=== PATIENT | female | born 1950 | race African-American/Black ===

== ENCOUNTER → 2017-05-13 | Outpatient (CLI) | payer MEDICARE ==
--- NOTE | 2017-05-13 10:31 | WOMENS IMAGING REPORT ---
EXAM DESCRIPTION: BILAT DIAGNOSTIC MAMMO W/CAD; U/S BREAST UNILAT LIMITED COMPLETED DATE/TIME: 05/13/2017 9:12 am; 05/13/2017 10:00 am REASON FOR STUDY: RIGHT BREAST MASS; RT BREAST MASS N63.0 UNSPECIFIED LUMP IN UNSPECIFIED BREAST COMPARISON: None. TECHNIQUE: Standard craniocaudal and mediolateral oblique views of each breast recorded using digita l acquisition. Additional right breast 90 mediolateral view and right breast ultrasound was performed. LIMITATIONS: None. FINDINGS: RIGHT BREAST MASSES: In the deep central right breast 12 o'clock position, a mammographic mass is present measurin g about 4 x 3 cm in size. This has lobular irregular borders and is mammographically suspicious for malignancy. CALCIFICATIONS: No new or suspicious calcifications. ARCHITECTURAL DISTORTION: None. DEVELOPING DENSITY: None. ASYMMETRY: None noted. OTHER: No other significant findings. LEFT BREAST MASSES: No suspicious masses. CALCIFICATIONS: No new or suspicious calcifications. ARCHITECTURAL DISTORTION: None. DEVELOPING DENSITY: None. ASYMMETRY: None noted. OTHER: No other significant finding. Read with the assistance of CAD: .[facility] - R2 Cenova Version 1.3 .[facility] - R2 Cenova Version 1.3 .[facility] - R2 Cenova Version 2.4 .[facility] [place] - R2 Cenova Version 2.4 .[facility] - R2 Flare Breaker Version 9.2 Right breast ultrasound: Ultrasound of the right breast 12 o'clock position demonstrates a 4.4 x 3.4 cm solid mass with acoust ic absorption and internal color flow, worrisome for malignancy. This would be amenable to ultrasoun d-guided core biopsy. IMPRESSION: No mammographic evidence for malignancy left breast. Right breast 4.4 x 3.4 cm mass, worrisome for malignancy. BI-RADS 4 Suspicious. Biopsy should be per formed in the absence of clinical contra-indication. BREAST DENSITY: b. There are scattered areas of fibroglandular density. BIRAD: 4 Suspicious. Biopsy should be considered. RECOMMENDATION: RECOMMENDED FOLLOW UP: Right breast ultrasound-guided core biopsy and post biopsy cl ip placement with two-view mammogram. These findings and recommendations were discussed with the pat ladarius, and she agrees to ultrasound-guided core biopsy. This can be performed at [facility]. SPECIFIC INTERVENTION/IMAGING/CONSULTATION RECOMMENDED:Right breast ultrasound-guided biopsy, post bi opsy clip placement and follow-up two-view mammogram COMMUNICATION:These findings were discussed with the patient. She is amenable to ultrasound-guided c ore biopsy performed here at [facility]. COMMENT: The patient has been notified of the results by letter per SA requirements. Additional no tification policies are in place for contacting patient with suspicious or incomplete findings. Quality ID #[id number]: The [employer] recommends an annual screening mammogram for women aged 40 years or over. This facility utilizes a reminder system to ensure that all patients receive reminder letters, and/or direct phone calls for appointments. This includes reminders for routine scr eening mammograms, diagnostic mammograms, or other Breast Imaging Interventions when appropriate. Th is patient will be placed in the appropriate reminder system. The [employer] (ACR) has developed recommendations for screening MRI of the breast s in certain patient populations, to be used in conjunction with mammography. Breast MRI surveillanc e may be appropriate for women with more than 20% lifetime risk of developing breast cancer as deter mined by genetic testing, significant family history of the disease, or history of mantle radiation f or Hodgkins Disease. ACR Practice Guidelines 2008. TECHNICAL DOCUMENTATION: FINDING NUMBER: (1) ASSESSMENT: (1) JOB ID: [id number] [employer]- All Rights Reserved
--- NOTE | 2017-05-13 10:31 | WOMENS IMAGING REPORT ---
EXAM DESCRIPTION: BILAT DIAGNOSTIC MAMMO W/CAD; U/S BREAST UNILAT LIMITED COMPLETED DATE/TIME: 05/13/2017 9:12 am; 05/13/2017 10:00 am REASON FOR STUDY: RIGHT BREAST MASS; RT BREAST MASS N63.0 UNSPECIFIED LUMP IN UNSPECIFIED BREAST COMPARISON: None. TECHNIQUE: Standard craniocaudal and mediolateral oblique views of each breast recorded using digita l acquisition. Additional right breast 90 mediolateral view and right breast ultrasound was performed. LIMITATIONS: None. FINDINGS: RIGHT BREAST MASSES: In the deep central right breast 12 o'clock position, a mammographic mass is present measurin g about 4 x 3 cm in size. This has lobular irregular borders and is mammographically suspicious for malignancy. CALCIFICATIONS: No new or suspicious calcifications. ARCHITECTURAL DISTORTION: None. DEVELOPING DENSITY: None. ASYMMETRY: None noted. OTHER: No other significant findings. LEFT BREAST MASSES: No suspicious masses. CALCIFICATIONS: No new or suspicious calcifications. ARCHITECTURAL DISTORTION: None. DEVELOPING DENSITY: None. ASYMMETRY: None noted. OTHER: No other significant finding. Read with the assistance of CAD: .[facility] - R2 Cenova Version 1.3 .[facility] - R2 Cenova Version 1.3 .[facility] - R2 Cenova Version 2.4 .[facility] - R2 Cenova Version 2.4 .[facility] - R2 Plant Protection Superintendent Version 9.2 Right breast ultrasound: Ultrasound of the right breast 12 o'clock position demonstrates a 4.4 x 3.4 cm solid mass with acoust ic absorption and internal color flow, worrisome for malignancy. This would be amenable to ultrasoun d-guided core biopsy. IMPRESSION: No mammographic evidence for malignancy left breast. Right breast 4.4 x 3.4 cm mass, worrisome for malignancy. BI-RADS 4 Suspicious. Biopsy should be per formed in the absence of clinical contra-indication. BREAST DENSITY: b. There are scattered areas of fibroglandular density. BIRAD: 4 Suspicious. Biopsy should be considered. RECOMMENDATION: RECOMMENDED FOLLOW UP: Right breast ultrasound-guided core biopsy and post biopsy cl ip placement with two-view mammogram. These findings and recommendations were discussed with the pat ladarius, and she agrees to ultrasound-guided core biopsy. This can be performed at [facility]. SPECIFIC INTERVENTION/IMAGING/CONSULTATION RECOMMENDED:Right breast ultrasound-guided biopsy, post bi opsy clip placement and follow-up two-view mammogram COMMUNICATION:These findings were discussed with the patient. She is amenable to ultrasound-guided c ore biopsy performed here at [facility]. COMMENT: The patient has been notified of the results by letter per SA requirements. Additional no tification policies are in place for contacting patient with suspicious or incomplete findings. Quality ID #[id number]: The [employer] recommends an annual screening mammogram for women aged 40 years or over. This facility utilizes a reminder system to ensure that all patients receive reminder letters, and/or direct phone calls for appointments. This includes reminders for routine scr eening mammograms, diagnostic mammograms, or other Breast Imaging Interventions when appropriate. Th is patient will be placed in the appropriate reminder system. The [employer] (ACR) has developed recommendations for screening MRI of the breast s in certain patient populations, to be used in conjunction with mammography. Breast MRI surveillanc e may be appropriate for women with more than 20% lifetime risk of developing breast cancer as deter mined by genetic testing, significant family history of the disease, or history of mantle radiation f or Hodgkins Disease. ACR Practice Guidelines 2008. TECHNICAL DOCUMENTATION: FINDING NUMBER: (1) ASSESSMENT: (1) JOB ID: [id number] [employer]- All Rights Reserved
== END ==
LOC: WI 08:46
PROVIDERS: ATTEND Internal Medicine
DX: N63.10 Unspecified lump in the right breast, unspecified quadrant (principal)
CPT/HCPCS: 76642; G0204; 77066

== ENCOUNTER → 2017-06-14 | Day surgery (SDC) | payer MEDICARE ==
[~2017-06-14] MED LIST: LIDOCAINE 2% INJ (20 MG/ML) 20 ML MDV ONE
--- NOTE | 2017-06-16 17:22 | WOMENS IMAGING REPORT ---
EXAM DESCRIPTION: U/S BREAST BX COMPLETED DATE/TIME: 06/14/2017 2:11 pm REASON FOR STUDY: RIGHT BREAST MASS AT 1200 N63.12 UNSPECIFIED LUMP IN THE RIGHT BREAST, UPPER INNE R VENKATA COMPARISON: Diagnostic mammograms and ultrasound 05/13/2017 TECHNIQUE: The procedure was discussed with the patient and the patient agreed to proceed. The patient was scanned and the area of interest in the 12 o'clock position 7 cm from the nipple of t he right breast was localized. This correlates with the area of concern on prior imaging studies. Th is area was targeted for ultrasound-guided core biopsy. After sterile skin prep and 3.5 mL local lidocaine 1% for skin and deep tissue anesthesia, a 14 gauge coaxial core biopsy needle was used to obtain several cores of tissue from the lesion. Under ultras ound guidance, a ribbon clip was placed in the areas sampled. There were no immediate post-procedure complications. MAMMOGRAM: Postprocedure two-view mammogram was not acquired after clip placement. Pathology yields a diagnosis of intraductal papilloma, fibrocystic changes, negative for malignancy. Pathology is concordant. LIMITATIONS: None. FINDINGS: Ultrasound guided breast biopsy as described above. POST PROCEDURE MAMMOGRAMS FOR MARKER PLACEMENT: No IMPRESSION: ULTRASOUND-GUIDED CORE BIOPSY OF THE RIGHT BREAST YIELDS A DIAGNOSIS OF intraductal jd lloma, fibrocystic changes. Because this is a papillary lesion, excision should be considered. COMMENT: COMMUNICATION: This report was discussed with the patient, 06/16/2017, 1655 hours. She und erstands that although this is a benign pathologic diagnosis of papillary lesion, excision of this ma ss should still be considered. Patient medication list reviewed: Yes- Quality ID# [id number]:Eligible professional attests to documenting i n the medical record they obtained, updated, or reviewed the patient's current medications. TECHNICAL DOCUMENTATION: JOB ID: [id number] [email or web address]- All Rights Reserved
== END ==
LOC: WI 12:43
PROVIDERS: ATTEND Surgery
PROC: 0HBT3ZX Excision of Right Breast, Percutaneous Approach, Diagnostic (ICD-10-PCS; principal; 2017-06-14)
DX: D24.1 Benign neoplasm of right breast (principal); N60.11 Diffuse cystic mastopathy of right breast
CPT/HCPCS: 88342 ×2; 88341 ×2; 88305 ×2; 19083; J3490

== ENCOUNTER 2017-08-03 09:06 | Day surgery (SDC) | payer MEDICARE ==
[2017-07-28 09:25] LABS: HEMATOCRIT 35.9 % (36.0-47.0); HEMOGLOBIN 11.1 g/dL (12.0-15.5); MEAN CORPUSCULAR HEMOGLOBIN 24.1 pg (27.0-33.4); MEAN CORPUSCULAR VOLUME 78 fl (80-97); PLATELET COUNT 353 10^3/uL (150-450); RED BLOOD COUNT 4.61 10^6/uL (3.72-5.28); RED CELL DISTRIBUTION WIDTH 16.7 % (11.5-14.0); WHITE BLOOD COUNT 6.1 10^3/uL (4.0-10.5)
[2017-07-28 10:05] LABS: ANION GAP 11 (5-19); BLOOD UREA NITROGEN 13 mg/dL (7-20); CALCIUM 10.6 mg/dL (8.4-10.2); CARBON DIOXIDE 25 mmol/L (22-30); CHLORIDE 102 mmol/L (98-107); GLUCOSE 268 mg/dL (75-110); POTASSIUM 4.6 mmol/L (3.6-5.0); SODIUM 137.6 mmol/L (137-145)
--- NOTE | 2017-07-28 12:27 | RADIOLOGY REPORT (SQ) ---
EXAM DESCRIPTION: CHEST PA/LATERAL COMPLETED DATE/TIME: 07/28/2017 10:18 am REASON FOR STUDY: PRE OP N63.10 UNSPECIFIED LUMP IN THE RIGHT BREAST, UNSPECIFIED VENKATA Z01.818 ENCO UNTER FOR OTHER PREPROCEDURAL EXAMINATION COMPARISON: 09/03/2009. NUMBER OF VIEWS: Two view. TECHNIQUE: Frontal and lateral radiographic views of the chest acquired. LIMITATIONS: None. FINDINGS: LUNGS AND PLEURA: No opacities, masses or pneumothorax. No pleural effusion. MEDIASTINUM AND HILAR STRUCTURES: No masses. No contour abnormalities. HEART AND VASCULAR STRUCTURES: Heart enlarged without failure. Aorta normal for age. BONES: No acute findings. Degenerative changes in the spine and shoulders. HARDWARE: None in the chest. OTHER: No other significant finding. IMPRESSION: CARDIAC ENLARGEMENT WITHOUT FAILURE. TECHNICAL DOCUMENTATION: JOB ID: [id number] [employer]- All Rights Reserved
--- NOTE | 2017-07-29 11:58 | EKG REPORT ---
SEVERITY:- ABNORMAL ECG - SINUS RHYTHM PROBABLE INFERIOR INFARCT, OLD : Confirmed by: Cinthia Aguero 29-Jul-2017 11:58:20
[~2017-08-03 09:06] MED LIST changes: +CEFAZOLIN 2 GM/D5W RTU 2 GM/50 ML RTUPB IV PRN; +LACTATED RINGERS 1000 ML IV PRN; +LIDOCAINE 0.5% INJ-PF (5 MG/ML) 50 ML SDV SUBCUT PRN; -LIDOCAINE 2% INJ (20 MG/ML) 20 ML MDV ONE
[2017-08-03] MEDS ORDERED: BUPIVACAINE HCL 0.25 % INJ/PF (2.5 MG/1 ML) 30 ML VIAL ONE (09:39)
[2017-08-03] MEDS ORDERED: FENTANYL CITRATE INJ/PF 100 MCG/2 ML AMPUL ONE ×2 (10:22→10:23)
[2017-08-03] MEDS ORDERED: PROPOFOL INJ 200 MG/20 ML VIAL IV ONE (10:23)
[2017-08-03] MEDS ORDERED: ACETAMINOPHEN 0 ML IV ONE (10:23)
[2017-08-03] MEDS ORDERED: ONDANSETRON HCL INJ/PF 4 MG/2 ML SDV ONE (10:23)
[2017-08-03] MEDS ORDERED: DEXAMETHASONE SOD PHOSPHATE INJ 4 MG/1 ML VIAL ONE (10:23)
[2017-08-03] MEDS ORDERED: MIDAZOLAM 2 MG/2 ML INJ ONE (10:23)
[2017-08-03] MEDS ORDERED: MORPHINE SULFATE 10 MG/ML INJ ONE (10:24)
[2017-08-03] MEDS ORDERED: SUCCINYLCHOLINE CHLORIDE INJ 200 MG/10 ML VIAL ONE (10:38)
[2017-08-03 10:46] LABS: POTASSIUM 4.4 mmol/L (3.6-5.0)
[2017-08-03] MEDS ORDERED: MEPERIDINE HCL/PF INJ 25 MG/1 ML DISP.SYRIN IV PRN (13:44)
[2017-08-03] MEDS ORDERED: PROMETHAZINE HCL INJ 25 MG/1 ML VIAL IV PRN ×2 (13:44)
[2017-08-03] MEDS ORDERED: DIPHENHYDRAMINE HCL 50 MG/ML VIAL IV PRN (13:44)
[2017-08-03] MEDS ORDERED: FENTANYL CITRATE INJ/PF 100 MCG/2 ML AMPUL IV PRN ×3 (13:44)
[2017-08-03] MEDS ORDERED: ONDANSETRON HCL INJ/PF 4 MG/2 ML SDV IV PRN (14:29)
[2017-08-03] MEDS ORDERED: RINGERS SOLUTION,LACTATED 1,000 ML IV PRN (14:29)
[2017-08-03] MEDS ORDERED: MORPHINE SULFATE 10 MG/ML INJ IV PRN (14:29)
--- NOTE | 2017-08-03 14:29 | PDOC DISCHARGE SUMMARY ---
Discharge Summary (SDC) - Discharge Final Diagnosis: Right breast mass Date of Surgery: 08/03/17 Discharge Date: 08/03/17 Condition: Good Treatment or Instructions: Right breast mass excision. May discharge patient home when met discharge criteria. Follow-up with me next week. Stay active but avoid strenuous activity. May shower in 2 days. Keep Steri-Strips on. Referrals: ALYSON OTT MD [Primary Care Provider] - Discharge Diet: As Tolerated Discharge Activity: Activity As Tolerated - Stay active but avoid strenuous activity. Wear firm fitting bra. Report the Following to Your Physician Immediately: Fever over 101 Degrees, Unusual Bleeding, Redness, Drainage-Foul Smelling
--- NOTE | 2017-08-03 15:38 | Operative Report ---
Operative Report DATE OF SURGERY: 08/03/17 PREOPERATIVE DIAGNOSIS: Right breast mass. POSTOPERATIVE DIAGNOSIS: Right breast mass. OPERATION: Right breast mass wide local excision. SURGEON: ZEN HOANG ANESTHESIA: GA TISSUE REMOVED OR ALTERED: Right breast mass. Right subareolar tissue. Right subareolar cyst. COMPLICATIONS: None ESTIMATED BLOOD LOSS: Minimal INTRAOPERATIVE FINDINGS: Firm oval approximately 4-5 cm mass located at the 12 o 'clock position of the right breast just above the areolar region. Subareolar very dense fibrotic tissue. With subareolar 2 cm cyst. PROCEDURE: Informed consent was obtained. Patient was brought to the operating room and placed on the operating room table in the supine position. After satisfactory induction of general anesthesia, patient's right breast was prepped and draped in the usual sterile fashion. The mass laid at the 12 o'clock position of the patient's right breast just above the areolar region. A transverse incision was made overlying the mass and the mass was excised with the about a centimeter to 2 cm margin circumferentially. And no point did I cut into the mass. The wide local excision specimen was oriented with a short stitch marking superior border and long stitch marking lateral border. At the subareolar region there was very dense fibrotic tissue at the superior area, that is the inferior edge of the resection. This superior subareolar tissue was excised and submitted to pathology. At the immediate subareolar region there was an apparent cyst that was excised in its wall was submitted to pathology. No other abnormalities were noted. Hemostasis appeared excellent. Operative field was irrigated and irrigant aspirated out. The wound was closed with deep dermal interrupted Vicryl sutures followed by running subcuticular Prolene pullout suture. Patient tolerated procedure well with no apparent complications and was taken to the recovery area in stable condition.
[2017-08-03 16:55] VITALS: BP 150/80
== END 2017-08-03 16:50 | disposition home or self-care (01) ==
LOC: OROUT 09:06
PROVIDERS: ATTEND Surgery
PROC: 0HBT0ZZ Excision of Right Breast, Open Approach (ICD-10-PCS; principal; 2017-08-03 11:30)
DX: N63.10 Unspecified lump in the right breast, unspecified quadrant (principal); N60.41 Mammary duct ectasia of right breast; D24.1 Benign neoplasm of right breast; E11.9 Type 2 diabetes mellitus without complications; Z79.899 Other long term (current) drug therapy; Z79.84 Long term (current) use of oral hypoglycemic drugs; Z88.5 Allergy status to narcotic agent; I10 Essential (primary) hypertension
CPT/HCPCS: 93005; 36415 ×2; 82962; 82947; 84132; 85027; 80048; 88304 ×2; 88305 ×2; 88307 ×2; 71046; 93010; 19301; J2250; J1100; J3010; J0330; J2405; J2704; J0690; 400; J0131; J2270

== ENCOUNTER → 2017-11-17 | Outpatient (CLI) | payer MEDICARE ==
[~2017-11-17] MED LIST changes: +CEFAZOLIN 1 GM/D5W RTU 1 GM/50 ML RTUPB IV PRN; -CEFAZOLIN 2 GM/D5W RTU 2 GM/50 ML RTUPB IV PRN; +LIDOCAINE 1%/EPINEPHRINE INJ 20 ML VIAL ONE; +LIDOCAINE 4% TRANSPARENT DRESSING 5 GM KIT TP PRN; +METHYLENE BLUE 50 MG/10 ML AMPULE ONE; +MICROFIBRILLAR COLLAGEN 1 GM PACK ONE
[2017-11-17 10:15] LABS: HEMATOCRIT 38.4 % (36.0-47.0); HEMOGLOBIN 11.9 g/dL (12.0-15.5); MEAN CORPUSCULAR HEMOGLOBIN 24.1 pg (27.0-33.4); MEAN CORPUSCULAR HGB CONC 30.9 g/dL (32.0-36.0); MEAN CORPUSCULAR VOLUME 78 fl (80-97); PLATELET COUNT 356 10^3/uL (150-450); RED BLOOD COUNT 4.93 10^6/uL (3.72-5.28); WHITE BLOOD COUNT 6.2 10^3/uL (4.0-10.5)
[2017-11-17 10:53] LABS: ANION GAP 17 (5-19); BLOOD UREA NITROGEN 8 mg/dL (7-20); CALCIUM 9.9 mg/dL (8.4-10.2); CARBON DIOXIDE 27 mmol/L (22-30); CHLORIDE 100 mmol/L (98-107); GLUCOSE 291 mg/dL (75-110); POTASSIUM 4.2 mmol/L (3.6-5.0); SODIUM 144.1 mmol/L (137-145)
--- NOTE | 2017-11-17 22:49 | EKG REPORT ---
SEVERITY:- BORDERLINE ECG - SINUS RHYTHM CONSIDER ANTERIOR INFARCT : Confirmed by: Cinthia Aguero 17-Nov-2017 19:48:27
[2017-11-24 08:03] VITALS: BP 172/84
--- NOTE | 2017-11-24 13:14 | EKG REPORT ---
SEVERITY:- ABNORMAL ECG - SINUS RHYTHM ABNRM R PROG, CONSIDER ASMI OR LEAD PLACEMENT CONSIDER OLD INFERIOR NH : Confirmed by: Gerardo Newman MD 24-Nov-2017 13:14:09
== END ==
LOC: OD 09:25 → UNDOADMIN 11-24 07:18 → INOR 11-24 07:18 → EDSTATUS 11-24 11:00
PROVIDERS: ATTEND Surgery
DX: Z01.810 Encounter for preprocedural cardiovascular examination (principal); Z01.812 Encounter for preprocedural laboratory examination; Z01.818 Encounter for other preprocedural examination; C50.919 Malignant neoplasm of unspecified site of unspecified female breast; D64.9 Anemia, unspecified; I10 Essential (primary) hypertension; E11.9 Type 2 diabetes mellitus without complications; E66.9 Obesity, unspecified
CPT/HCPCS: 36415; 80048; 82947; 84132; 85027; 93005; 93010; J0690; J3490; Q9968

== ENCOUNTER → 2017-11-25 | Outpatient (CLI) | payer MEDICARE ==
[~2017-11-25] MED LIST changes: +AMLODIPINE BESYLATE 5 MG TABLET PO ONE; -CEFAZOLIN 1 GM/D5W RTU 1 GM/50 ML RTUPB IV PRN; -LACTATED RINGERS 1000 ML IV PRN; -LIDOCAINE 0.5% INJ-PF (5 MG/ML) 50 ML SDV SUBCUT PRN; -LIDOCAINE 1%/EPINEPHRINE INJ 20 ML VIAL ONE; -LIDOCAINE 4% TRANSPARENT DRESSING 5 GM KIT TP PRN; +LISINOPRIL 10 MG TABLET PO ONE; -METHYLENE BLUE 50 MG/10 ML AMPULE ONE; +METOPROLOL TARTRATE 100 MG TABLET PO ONE; +METOPROLOL TARTRATE PF/INJ 5 MG/5 ML SDV IV ONE; -MICROFIBRILLAR COLLAGEN 1 GM PACK ONE; +REGADENOSON INJ 0.4 MG/5 ML DISP.SYRIN IV ONE
--- NOTE | 2017-11-25 18:14 | DRAGON STRESS TEST REPORT ---
INTRAVENOUS LEXISCAN CARDIOLITE STRESS TEST USING SINGLE PHOTON EMMISION COMPUTERIZED TOMOGRAPHIC. DATE OF PROCEDURE: November 25, 2017, INDICATION : Chest pain CARDIAC RISK FACTORS: Diabetes, hypertension RESTING EKG: Sinus rhythm with heart rate of [address]-T wave changes noted. STRESS EKG: No significant ST segment changes noted with LexiScan bolus REASON FOR TERMINATION: Protocol. PROCEDURE REPORT: Baseline heart rate 121 beats per minute with blood pressure of 178/86. Patient had no significant complaints. Patient was bolused with Lexiscan 0.4 mg intravenously followed by saline bolus. Heart rate at 2 minutes post bolus 144 with a blood pressure of 201/96. 3 minutes post bolus heart rate 144 with blood pressure of 197/87. Prior to stopping monitoring, at 6 minutes patient heart rate was 117 with blood pressure of 162/85. No significant EKG changes were noted. Patient had no significant complaints during the procedure or postprocedure. Patient injected with Aminophyllin 75 mg at 3 minutes or later after Lexiscan bolus. CONCLUSIONS: Normal EKG and hemodynamic response to IV LexiScan. NUCLEAR DATA: At rest the patient was given 14.91 millicuries of technetium 99 sestamibi injected intravenously. As per protocol rest gated SPECT images were obtained. On day of stress test, the patient was given intravenous LexiScan at a dose of 0.4 mg in 5 mL intravenously, followed by flush with normal saline. Subsequently the stress dose of 46.6 millicuries of technetium 99 sestamibi was injected intravenously. As per protocol stress gated images were obtained. NUCLEAR INTERPRETATION: Both raw and processed data were used for interpretation. Visual, qualitative, computer-generated quantitative data was used. There was good myocardial uptake of technetium compound. Significant motion artifact and soft tissue attenuations were noted. Marked increased visceral uptake was also noted. Overall image quality was suboptimal. Mild decreased uptake noted in the inferolateral wall of the left ventricle in the stress images which is smaller area of fixed defect being noted indicative of inferolateral ischemia with underlying fixed defect. EKG gated imaging showed LV EF at 52 %, rest and stress gated EF similar visually. T. I D. ratio was 1.43 lung heart ratio noted to be within normal limits 0.43. No significant extracardiac and abnormal radiotracer activities were noted. RV free wall uptake was noted to be WNL. IMPRESSION: Also refer to comments under nuclear interpretation. Also test results needs to be interpreted in the context of pretest probability. Image quality was significantly suboptimal therefore clinical correlation is requested. 1. Mild decreased uptake noted in the inferolateral wall of the left ventricle in the stress images and a smaller area of fixed defect being noted indicative of inferolateral ischemia with underlying fixed defect.. 2. Mild transient ischemic dilatation noted. Could be related to LVH, severe hypertension response. 3. EKG gated imaging shows left ventricular ejection fraction of approx. 52 %. 4. Clinical correlation requested as occasionally worse disease or balanced ischemia could be missed. In approximately 10% of the cases Lexiscan may not cause adequate vasodilatory stress. 5. Please note that patient had significantly increased heart rate and also blood pressure during the stress imaging with marked increase in double product but there were no significant EKG changes or chest pain. Patient remained symptoms were just shortness of breath. Therefore EKG part was at least negative. RECOMMENDATIONS: Aggressive risk factor modification and medical management. Further evaluation may be needed if continued symptoms or other high risk indicators are noted on clinical evaluation. Close cardiology follow-up is also recommended. Clinical correlation with echocardiogram derived ejection fraction. Inability to exercise by itself can lead to increased cardiovascular event risks. Consider cardiology consultation and or follow-up if clinically indicated. I am available for cardiology evaluation and consultation if requested by the historian dramatic arts, unless patient already has a samples and repairs preparer. JEANETH
== END ==
LOC: RAD 06:50
PROVIDERS: ATTEND Internal Medicine Cardiovascular Disease
DX: Z01.818 Encounter for other preprocedural examination (principal); R07.9 Chest pain, unspecified; C50.919 Malignant neoplasm of unspecified site of unspecified female breast; E66.9 Obesity, unspecified; I10 Essential (primary) hypertension; E11.9 Type 2 diabetes mellitus without complications
CPT/HCPCS: 93017; 78452; A9500; J2785; J3490; A9270 ×3; Q9969

== ENCOUNTER 2017-12-29 07:19 | Observation (INO) | payer MEDICARE ==
[2017-12-22 11:08] LABS: ANION GAP 15 (5-19); BLOOD UREA NITROGEN 14 mg/dL (7-20); CALCIUM 10.1 mg/dL (8.4-10.2); CARBON DIOXIDE 28 mmol/L (22-30); CHLORIDE 99 mmol/L (98-107); GLUCOSE 291 mg/dL (75-110); POTASSIUM 4.1 mmol/L (3.6-5.0); SODIUM 142.2 mmol/L (137-145)
[2017-12-22 12:04] LABS: HEMATOCRIT 37.8 % (36.0-47.0); HEMOGLOBIN 12.2 g/dL (12.0-15.5); MEAN CORPUSCULAR HEMOGLOBIN 24.6 pg (27.0-33.4); MEAN CORPUSCULAR HGB CONC 32.2 g/dL (32.0-36.0); MEAN CORPUSCULAR VOLUME 76 fl (80-97); PLATELET COUNT 315 10^3/uL (150-450); RED BLOOD COUNT 4.95 10^6/uL (3.72-5.28); RED CELL DISTRIBUTION WIDTH 16.3 % (11.5-14.0); WHITE BLOOD COUNT 6.5 10^3/uL (4.0-10.5)
[~2017-12-29 07:19] MED LIST changes: -AMLODIPINE BESYLATE 5 MG TABLET PO ONE; +CEFAZOLIN 1 GM/D5W RTU 1 GM/50 ML RTUPB IV PRN; +LACTATED RINGERS 1000 ML IV PRN; +LIDOCAINE 0.5% INJ-PF (5 MG/ML) 50 ML SDV SUBCUT PRN; +LIDOCAINE 2% INJ-PF (20 MG/ML) 10 ML AMPUL ONE; +LIDOCAINE 4% TRANSPARENT DRESSING 5 GM KIT TP PRN; -LISINOPRIL 10 MG TABLET PO ONE; -METOPROLOL TARTRATE 100 MG TABLET PO ONE; -METOPROLOL TARTRATE PF/INJ 5 MG/5 ML SDV IV ONE; -REGADENOSON INJ 0.4 MG/5 ML DISP.SYRIN IV ONE
[2017-12-29] MEDS ORDERED: METHYLENE BLUE 50 MG/10 ML AMPULE ONE (07:40)
[2017-12-29] MEDS ORDERED: LIDOCAINE 1%/EPINEPHRINE INJ 20 ML VIAL ONE (07:40)
[2017-12-29] MEDS ORDERED: MICROFIBRILLAR COLLAGEN 1 GM PACK ONE (07:40)
[2017-12-29] MEDS ORDERED: INSULIN REG, HUMAN 100 UNIT/ML 3 ML VIAL (PYX) ONE (10:20)
[2017-12-29] MEDS ORDERED: ALBUTEROL SULFATE 0.083% NEB 2.5 MG/3 ML AMPUL NEB ONE (11:20)
[2017-12-29] MEDS ORDERED: FAMOTIDINE INJ/PF 20 MG/2 ML SDV IV ONE (11:21)
[2017-12-29] MEDS ORDERED: METOCLOPRAMIDE HCL INJ/PF 10 MG/2 ML SDV IV ONE (11:45)
--- NOTE | 2017-12-29 11:55 | RADIOLOGY REPORT (SQ) ---
EXAM DESCRIPTION: NM LYMPHATICS/LYMPH GLANDS COMPLETED DATE/TIME: 12/29/2017 10:46 am REASON FOR STUDY: BREAST CANCER C50.919 MALIGNANT NEOPLASM OF UNSP SITE OF UNSPECIFIED FEMAL COMPARISON: Ultrasound breast biopsy 06/14/2017 RADIONUCLIDE AND DOSE: 571 microcuries TC-99m tilmanocept - Lymphoseek. The route of agent administration: Subcutaneous in the skin. TECHNIQUE: The skin of the right breast was prepped in sterile fashion. The radiopharmaceutical was administered in equally divided doses in the periareolar breast, intradermally from a benign o'clock to the 3 o'clock position. LIMITATIONS: None. FINDINGS: Images demonstrate activity at the injection site. Migration of activity towards the righ t axilla IMPRESSION: ADMINISTRATION OF RADIOPHARMACEUTICAL FOR SENTINEL LYMPH NODE EVALUATION. TECHNICAL DOCUMENTATION: JOB ID: [id number] [employer]- All Rights Reserved Reading location - IP/workstation name: [email or web address]
[2017-12-29] MEDS ORDERED: MIDAZOLAM 2 MG/2 ML INJ ONE (12:04)
[2017-12-29] MEDS ORDERED: FENTANYL CITRATE INJ/PF 250 MCG/5 ML AMPULE ONE (12:04)
[2017-12-29] MEDS ORDERED: EPHEDRINE SULFATE INJ 50 MG/1 ML AMPULE ONE (12:04)
[2017-12-29] MEDS ORDERED: PROPOFOL INJ 200 MG/20 ML VIAL IV ONE (12:05)
[2017-12-29] MEDS ORDERED: ACETAMINOPHEN 1,000 MG/100 ML RTUPB IV ONE (12:05)
[2017-12-29] MEDS ORDERED: DEXMEDETOMIDINE INJ 80 MCG/20 ML VIAL IV ONE (12:05)
[2017-12-29] MEDS ORDERED: MORPHINE SULFATE 10 MG/ML INJ ONE (12:06)
[2017-12-29] MEDS ORDERED: FENTANYL CITRATE INJ/PF 100 MCG/2 ML AMPUL IV PRN ×3 (13:04)
[2017-12-29] MEDS ORDERED: DIPHENHYDRAMINE HCL 50 MG/ML VIAL IV PRN (13:04)
[2017-12-29] MEDS ORDERED: PROMETHAZINE HCL INJ 25 MG/1 ML VIAL IV PRN ×2 (13:04)
[2017-12-29] MEDS ORDERED: ONDANSETRON HCL INJ/PF 4 MG/2 ML SDV IV PRN ×2 (13:04→13:22)
[2017-12-29] MEDS ORDERED: MEPERIDINE HCL/PF INJ 25 MG/1 ML DISP.SYRIN IV PRN (13:04)
[2017-12-29] MEDS ORDERED: KETOROLAC TROMETHAMINE 10 MG TABLET PO PRN ×2 (13:22→13:23)
[2017-12-29] MEDS ORDERED: KETOROLAC TROMETHAMINE INJ/PF 30 MG/1 ML SDV IV PRN (13:22)
--- NOTE | 2017-12-29 13:22 | Operative Report ---
Operative Report DATE OF SURGERY: 12/29/17 PREOPERATIVE DIAGNOSIS: 1. Status post right breast lumpectomy for DCIS; Positive resection margin. 2. Incidental papillary carcinoma, right breast POSTOPERATIVE DIAGNOSIS: Same OPERATION: 1. Right mastectomy with sentinel lymph node biopsy 3. 2. Drainage of right chest wall SURGEON: KIMANI IRVING 1ST OCEAN IMPORT REPRESENTATIVE: HIRAM REICH ANESTHESIA: GA TISSUE REMOVED OR ALTERED: Right breast; 3 sentinel lymph COMPLICATIONS: None ESTIMATED BLOOD LOSS: Minimal INTRAOPERATIVE FINDINGS: See below PROCEDURE: Patient was in the preop holding area the right breast was marked. Bedside neoprobe showed increased activity in the right axilla consistent with sentinel mapping to the right axilla. The patient was taken to the operating room where general anesthesia was induced. Right arm abducted, right breast injected intradermally with 3 cc of full- strength methylene blue in the right breast massaged. The right breast and axilla were prepped and draped in sterile fashion. Surgical plan surgical timeout were conducted. Markings were made on the right breast for a classic mastectomy. Skin was incised with a #10 blade. Superior and inferior skin flaps were raised from the point of elliptical transection, to the sub-clavicular area, the parasternal tissue and the serratus muscle laterally and inferiorly. The breast was taken off of the chest wall and event only, the tail of Ferguson mobilized with the breast. [place] node biopsy was undertaken. Dual mapping technique utilized. 3 sentinel lymph nodes were harvested from the low axilla level 1. First node blue and hot in vivo count 10,052 ex vivo count 7970. [place] lymph node to 5881 in vivo count ex vivo count 9948. Third node hot and blue in vivo count 21 ,000 958 ex vivo count 23 395. Background counts were negligible. [place] node biopsy portion of the operation was felt to be complete. A large Justin drain was placed in the inferior skin flap and hooked to bulb suction and secured to skin with 2-0 Prolene suture. Hemostasis was achieved. Wound closed with a 2-0 Vicryl, Dermabond glue. Patient tolerated procedure well, extubated and taken recovery room in stable condition. The physician cement tester assistant, Ms. Torrez, provided assistance during this case by: Assisting insertion, retracting tissue, instillation of local anesthesia and closure of skin incisions.
[2017-12-29] MEDS ORDERED: DEXTROSE 5%-LACTATED RINGERS 1,000 ML IV PRN (13:43)
[2017-12-29] MEDS ORDERED: KETOROLAC TROMETHAMINE INJ/PF 30 MG/1 ML SDV ONE (13:59)
[2017-12-29] MEDS ORDERED: ONDANSETRON HCL INJ/PF 4 MG/2 ML SDV ONE (14:36)
[2017-12-29] MEDS ORDERED: SUCCINYLCHOLINE CHLORIDE INJ 200 MG/10 ML VIAL ONE (14:36)
[2017-12-29] MEDS ORDERED: PHENYLEPHRINE HCL INJ/PF 10 MG/1 ML SDV ONE (14:36)
[2017-12-29] MEDS ORDERED: TRIAMCINOLONE ACETONIDE 0.1% CREAM 15 GM TOP PRN (15:56)
[2017-12-29] MEDS ORDERED: ACETAMINOPHEN 1000 MG PO PRN (15:56)
[2017-12-29] MEDS ORDERED: ACETAMINOPHEN 325 MG TABLET PO PRN (16:35)
[2017-12-29] MEDS: DOCUSATE SODIUM 100 MG CAPSULE PO SCH (17:53)
[2017-12-29] MEDS: KETOROLAC TROMETHAMINE INJ/PF 30 MG/1 ML SDV IV SCH ×2 (17:54→23:46)
[2017-12-29] MEDS: ACETAMINOPHEN 1,000 MG/100 ML RTUPB IV SCH (17:58)
[2017-12-29] MEDS ORDERED: FUROSEMIDE 20 MG TABLET PO SCH (18:00)
[2017-12-29] MEDS ORDERED: ACETAMINOPHEN INJ/PF 1000 MG/100 ML SDV IV SCH (18:00)
[2017-12-29] MEDS: METFORMIN HCL 500 MG TABLET PO SCH (19:42)
[2017-12-29] MEDS: GLIPIZIDE XL 5 MG TAB.ER.24 PO SCH (19:42)
[2017-12-29] MEDS: INSULIN GLARGINE,HUM.REC.ANLOG 300 UNIT/3 ML INSULN.PEN SUBCUT SCH (19:43)
[2017-12-29] MEDS: FUROSEMIDE 40 MG TABLET PO SCH (19:48)
[2017-12-29] MEDS ORDERED: ATORVASTATIN CALCIUM 20 MG TABLET PO SCH (22:00)
[2017-12-30] MEDS ORDERED: DEXTROSE 50%-WATER SYRINGE 12.5 GM/25 ML DOSE IV PRN (00:25)
[2017-12-30] MEDS ORDERED: DEXTROSE 50%-WATER SYRINGE 25 GM/50 ML DOSE IV PRN (00:25)
[2017-12-30] MEDS ORDERED: DEXTROSE 40% GEL 15 GM TUBE PO PRN (00:25)
[2017-12-30] MEDS ORDERED: DEXTROSE 40% GEL 15 GM TUBE X 2 PO PRN (00:25)
[2017-12-30] MEDS ORDERED: GLUCAGON,HUMAN RECOMB 1 MG INJ IM PRN (00:25)
[2017-12-30] MEDS: INSULIN LISPRO 100 UNIT/ML 3 ML VIAL SUBCUT PRN ×2 (00:44→09:58)
[2017-12-30] MEDS: ACETAMINOPHEN 1,000 MG/100 ML RTUPB IV SCH ×2 (00:44→06:36)
[2017-12-30] MEDS ORDERED: INSULIN LISPRO 100 UNIT/ML 3 ML VIAL SUBCUT ONE (03:15)
[2017-12-30] MEDS ORDERED: ACETAMINOPHEN 1,000 MG/100 ML RTUPB IV ONE (05:56)
[2017-12-30] MEDS: KETOROLAC TROMETHAMINE INJ/PF 30 MG/1 ML SDV IV SCH (05:57)
[2017-12-30] MEDS ORDERED: SITAGLIPTIN PHOSPHATE 50 MG TABLET PO SCH (08:00)
[2017-12-30] MEDS: METFORMIN HCL 500 MG TABLET PO SCH (08:20)
[2017-12-30 08:39] VITALS: BP 133/65
--- NOTE | 2017-12-30 09:08 | PDOC DISCHARGE SUMMARY ---
General - Admit/Disc Date/PCP Admission Date/Primary Care Provider: 12/29/17 07:19 ALYSON OTT MD Discharge Date: 12/30/17 - Discharge Diagnosis (1) Breast cancer Is this a current diagnosis for this admission?: Yes - Additional Information Home Medications: Amlodipine Besylate/Benazepril [Amlodipine-Benazepril 5-20 mg] 1 cap PO DAILY Furosemide [Lasix 40 mg Tablet] 40 mg PO BID 12/29/17 Glipizide [Glucotrol 10 mg Tablet] 10 mg PO DAILY 12/29/17 Insulin Detemir [Levemir Flextouch] 26 units SQ BID 12/29/17 Metformin HCl [Glucophage] 1,000 mg PO BID 12/29/17 Metoprolol Succinate [Toprol XL 100 mg Tablet] 100 mg PO Q12 12/29/17 Rosuvastatin Calcium [Crestor 10 mg Tablet] 10 mg PO QHS 12/29/17 Sitagliptin Phosphate [Januvia] 100 mg PO QAM 12/29/17 Spironolactone [Aldactone 25 mg Tablet] 25 mg PO DAILY 12/29/17 History of Present Illness History of Present Illness: ASHISH MENESES is a 67 year old female admitted for surgical intervention for her breast cancer. She was taken to the OR for right mastectomy. The pt tolerated the procedure well and was taken to the floor in stable condition. Hospital Course Hospital Course: The pt was transferred to the floor in stable condition. She did well overnight. Her incision was clean, dry, and intact. By POD #1, she was ambulating, tolerating a diet, her pain was controlled, and it was felt the she had reached maximal hospital benefit. The pt at this time was fit for discharge. Physical Exam Vital Signs: Temp Pulse Resp BP Pulse Ox 98.2 F 85 18 133/65 H 100 12/30/17 07:51 12/30/17 07:51 12/30/17 07:51 12/30/17 07:51 12/30/17 08:16 Pulse Oximeter Continuous Start: 12/29/17 16: 55 Freq: RTQ4 Status: Complete Document 12/30/17 08:16 TPO (Rec: 12/30/17 08:46 TPO [email or web address]) Pulse Oximetry Assessment Oxygen Saturation (92-100) 100 Oxygen Delivery Method Room Air Fraction of Inspired Oxygen (FIO2) 21 Equipment Usage Equipment Discontinued Continuous SpO2 Machine # 6 Intake & Output 12/29/17 12/30/17 12/31/17 06:59 06:59 06:59 Intake Total 2220 Output Total 245 335 Balance 1974 - Weight 117.9 kg Results Laboratory Results: 12/22/17 10:31 12/29/17 08:15 12/29/17 08:15 Potassium 4.0 Impressions: Lymph Scan Nuclear Medicine 12/29/17 08:30 IMPRESSION: ADMINISTRATION OF RADIOPHARMACEUTICAL FOR SENTINEL LYMPH NODE EVALUATION. Qualifiers - * PATIENT BEING DISCHARGED WITH ANY OF THE FOLLOWING DIAGNOSIS: No Plan Time Spent: Less than 30 Minutes
[2017-12-30] MEDS: DOCUSATE SODIUM 100 MG CAPSULE PO SCH (09:56)
[2017-12-30] MEDS: INSULIN GLARGINE,HUM.REC.ANLOG 300 UNIT/3 ML INSULN.PEN SUBCUT SCH (09:57)
[2017-12-30] MEDS ORDERED: BENAZEPRIL HCL 20 MG TABLET PO SCH (10:00)
[2017-12-30] MEDS ORDERED: METOPROLOL TARTRATE 100 MG TABLET PO SCH (10:00)
[2017-12-30] MEDS ORDERED: SPIRONOLACTONE 25 MG TABLET PO SCH (10:00)
[2017-12-30] MEDS ORDERED: AMLODIPINE BESYLATE PO SCH (10:00)
[2017-12-30] MEDS ORDERED: BENAZEPRIL PO SCH (10:00)
[2017-12-30] MEDS ORDERED: AMLODIPINE BESYLATE 5 MG TABLET PO SCH (10:00)
[2017-12-30] MEDS: FUROSEMIDE 40 MG TABLET PO SCH (10:47)
[2017-12-30] MEDS: GLIPIZIDE XL 5 MG TAB.ER.24 PO SCH (10:50)
== END 2017-12-30 11:12 | disposition home health service (06) ==
LOC: INTOOBSV 07:19 → INOR 07:19 → 2S 15:34
PROVIDERS: ADMIT Surgery; ATTEND Surgery
PROC: 0HTT0ZZ Resection of Right Breast, Open Approach (ICD-10-PCS; principal; 2017-12-29 11:00)
DX: D05.11 Intraductal carcinoma in situ of right breast (principal); Z17.0 Estrogen receptor positive status [ER+]; E11.9 Type 2 diabetes mellitus without complications; I10 Essential (primary) hypertension; R06.02 Shortness of breath; Z79.899 Other long term (current) drug therapy; Z79.4 Long term (current) use of insulin; Z87.891 Personal history of nicotine dependence; Z98.890 Other specified postprocedural states
CPT/HCPCS: 36415 ×2; 82962 ×2; 84132; 85027; 80048; 88342 ×2; 88307 ×2; 78195; 94799; 94762 ×2; 94640; 19307; G0378 ×2; G0379; A9520; J2250; J0690; A9270 ×15; J3010; J1885 ×2; J2370; J3490 ×3; J0330; J2405; J2704; S0028; J0131 ×2; Q9968; 1610; J1815; J2270; J2765

== ENCOUNTER 2018-01-21 10:43 | Inpatient (IN) | payer MEDICARE ==
[~2018-01-21 10:43] MED LIST changes: -CEFAZOLIN 1 GM/D5W RTU 1 GM/50 ML RTUPB IV PRN; -LACTATED RINGERS 1000 ML IV PRN; -LIDOCAINE 0.5% INJ-PF (5 MG/ML) 50 ML SDV SUBCUT PRN; -LIDOCAINE 2% INJ-PF (20 MG/ML) 10 ML AMPUL ONE; -LIDOCAINE 4% TRANSPARENT DRESSING 5 GM KIT TP PRN; +PIPERACILLIN SODIUM/TAZOBACTAM 3.375 GM in NORMAL SALINE 100 ML IV ONE
[2018-01-21] MEDS ORDERED: ACETAMINOPHEN 325 MG TABLET PO ONE ×2 (11:02→21:15)
[2018-01-21] MEDS ORDERED: NORMAL SALINE 1000 ML 1,000 ML IV ONE (11:02)
--- NOTE | 2018-01-21 11:04 | ER Document Report ---
ED Medical Screen (RME) - General Chief Complaint: Low Blood Sugar Stated Complaint: BLOOD PRESSURE CONCERNS Time Seen by Provider: 01/21/18 10:55 Mode of Arrival: Wheelchair Information source: Patient, Relative TRAVEL OUTSIDE OF THE [place] IN LAST 30 DAYS: No - HPI Patient complains to provider of: Generalized weakness, fever Notes: 01/21/18 11:04 Patient is a 67-year-old female presenting to the emergency room today for generalized weakness with fall, noted to have a fever and slightly tachycardic in the triage area, recent right mastectomy on 12/31/2017, reports upper respiratory illness shortly after her surgery which has since resolved 01/21/18 11:10 RAPID MEDICAL EVALUATION DISCLOSURE I have seen this patient as part of a Rapid Medical Evaluation and, if applicable, placed any initially appropriate orders. The patient will be seen and fully evaluated, including a full history and physical exam, by a provider ( in Main ED or Fast Track) when a room becomes available. - Related Data Allergies/Adverse Reactions: oxycodone HCl [From Percocet] Allergy (Severe, Verified 01/21/18 10:46) hallucanations, rash Iodine and Iodide Containing Produc Adverse Reaction (Verified 01/21/18 10:46) Diarrhea, emesis Past Medical History - Social History Chew tobacco use (# tins/day): No Frequency of alcohol use: None Drug Abuse: None - Past Medical History Cardiac Medical History: Reports: Hx Coronary Artery Disease - RECENTLY SAW DR SALINAS, CARD CLEARANCE, Hx Heart Attack - - NO STENTS, NO BYPASS, Hx Hypercholesterolemia - "MILDLY HIGH" PER PT, Hx Hypertension - MEDS Denies: Hx Atrial Fibrillation, Hx Congestive Heart Failure, Hx Peripheral Vascular Disease, Hx Pulmonary Embolism, Hx Heart Murmur Pulmonary Medical History: Reports: Hx Asthma - H/O, NO CURRENT MEDS, Hx Pneumonia - H/O NOT RECENTLY Denies: Hx Bronchitis, Hx COPD, Hx Respiratory Failure, Hx Sleep Apnea, Hx Tuberculosis Neurological Medical History: Denies: Hx Cerebrovascular Accident, Hx Seizures Endocrine Medical History: Reports: Hx Diabetes Mellitus Type 2. Denies: Hx Graves' Disease, Hx Hyperthyroidism, Hx Hypothyroidism Renal/ Medical History: Denies: Hx Ovarian Cysts, Hx Peritoneal Dialysis, Hx Pelvic Inflammatory Disease Malignancy Medical History: Reports: Hx Breast Cancer. Denies: Hx Cervical Cancer, Hx Leukemia, Hx Lung Cancer, Hx Ovarian Cancer GI Medical History: Denies: Hx Crohn's Disease, Hx Gastroesophageal Reflux Disease, Hx Hiatal Hernia, Hx Irritable Bowel, Hx Liver Failure, Hx Pancreatitis , Hx Ulcer Musculoskeltal Medical History: Reports Hx Arthritis - GENERALIZED, Denies Hx Fibromyalgia, Denies Hx Muscular Dystrophy Traumatic Medical History: Reports: Hx Fractures - ORIF L ARM WITH PINS Infectious Medical History: Denies: Hx HIV Past Surgical History: Reports: Hx Hysterectomy. Denies: Hx Appendectomy, Hx Bowel Surgery, Hx Section, Hx Cholecystectomy, Hx Colostomy, Hx Coronary Artery Bypass Graft, Hx Gastric Bypass Surgery, Hx Herniorrhaphy, Hx Mastectomy, Hx Pacemaker, Hx Tonsillectomy, Hx Tubal Ligation - Immunizations Hx Diphtheria, Pertussis, Tetanus Vaccination: Yes History of Influenza Vaccine for 04/2017 - 09/2017 Season: No Physical Exam - Vital signs Vitals: Temp Pulse Resp BP Pulse Ox 100.7 F H 105 H 20 145/68 H 98 01/21/18 10:50 01/21/18 10:50 01/21/18 10:50 01/21/18 10:50 01/21/18 10:50 Course - Vital Signs Vital signs: Temp Pulse Resp BP Pulse Ox 100.7 F H 105 H 20 145/68 H 98 01/21/18 10:50 01/21/18 10:50 01/21/18 10:50 01/21/18 10:50 01/21/18 10:50 Doctor's Discharge - Discharge Referrals: MERA AREVALO MD [Primary Care Provider] - Follow up as needed
[2018-01-21 12:12] LABS: APPEARANCE,URINE CLEAR; BILIRUBIN,URINE NEGATIVE (NEGATIVE); COLOR,URINE YELLOW; GLUCOSE, URINE >=500 mg/dL (NEGATIVE); KETONES,URINE NEGATIVE (NEGATIVE); LEUKOCYTE ESTERASE,URINE NEGATIVE (NEGATIVE); NITRITE,URINE NEGATIVE (NEGATIVE); PROTEIN,URINE NEGATIVE (NEGATIVE)
--- NOTE | 2018-01-21 13:36 | RADIOLOGY REPORT (SQ) ---
EXAM DESCRIPTION: CHEST 2 VIEWS COMPLETED DATE/TIME: 01/21/2018 1:09 pm REASON FOR STUDY: COUGH, FEVER COMPARISON: Two-view chest 07/28/2017 EXAM PARAMETERS: NUMBER OF VIEWS: two views TECHNIQUE: Digital Frontal and Lateral radiographic views of the chest acquired. RADIATION DOSE: NA LIMITATIONS: none FINDINGS: There is right breast and chest wall air worrisome for abscess. This finding was called ismael Ang MD 1315 hours, 01/21/2018. LUNGS AND PLEURA: No opacities, masses or pneumothorax. No pleural effusion. MEDIASTINUM AND HILAR STRUCTURES: No masses or contour abnormalities. HEART AND VASCULAR STRUCTURES: Mild cardiomegaly BONES: No acute findings. HARDWARE: None in the chest. OTHER: No other significant finding. IMPRESSION: Soft tissue findings worrisome for right breast abscess with a 5 cm air-fluid level and punctate smaller air bubbles seen along the right chest soft tissues. Findings discussed with the em ergency room attending physician TECHNICAL DOCUMENTATION: JOB ID: [id number] [employer]- All Rights Reserved Reading location - IP/workstation name: [email or web address]
[2018-01-21 14:43] LABS: VENOUS BLOOD BASE EXCESS 2.8 mmol/L; VENOUS BLOOD HCO3 28.9 mmol/L (20-32); VENOUS BLOOD PCO2 52.2 mmHg (35-63); VENOUS BLOOD PH 7.36 (7.30-7.42)
[2018-01-21 14:46] LABS: INTERNATIONAL RATION (INR) 0.99; PROTHROMBIN TIME 13.6 SEC (11.4-15.4)
[2018-01-21 14:50] LABS: ABSOLUTE LYMPHOCYTES (AUTO) 1.4 10^3/uL (0.5-4.7); ABSOLUTE NEUT (AUTO) 3.7 10^3/uL (1.7-8.2); BASOPHILS % (AUTO) 0.7 % (0-2); EOSINOPHILS % (AUTO) 0.4 % (0-6); HEMATOCRIT 30.9 % (36.0-47.0); HEMOGLOBIN 9.6 g/dL (12.0-15.5); LYMPHOCYTES % (AUTO) 22.6 % (13-45); MEAN CORPUSCULAR HGB CONC 31.1 g/dL (32.0-36.0); MEAN CORPUSCULAR VOLUME 77 fl (80-97); MONOCYTES % (AUTO) 16.1 % (3-13); PLATELET COUNT 412 10^3/uL (150-450); RED CELL DISTRIBUTION WIDTH 16.5 % (11.5-14.0); SEGMENTED NEUTROPHILS % (AUTO) 60.2 % (42-78); TOTAL CELLS COUNTED % (AUTO) 100 %; WHITE BLOOD COUNT 6.1 10^3/uL (4.0-10.5)
--- NOTE | 2018-01-21 15:01 | ER Document Report ---
ED Blood Sugar Problem - General Chief Complaint: Low Blood Sugar Stated Complaint: BLOOD PRESSURE CONCERNS Time Seen by Provider: 01/21/18 10:55 Mode of Arrival: Wheelchair Information source: Patient, Relative Notes: Pt is a 67 year old female with a history of breast cancer who had a right mastectomy on 12/[address] Phelps here at [place]. Pt has had home health coming out and states her blood pressure today was low at 99/55 and 101/50. Pt also states her sugars have been in the 500s. She takes metformin and glipizide for DM. She denies fever that she knows of, states there's some redness around the incision site of her mastectomy, but no drainage or real tenderness. TRAVEL OUTSIDE OF THE [place] IN LAST 30 DAYS: No - Related Data Allergies/Adverse Reactions: oxycodone HCl [From Percocet] Allergy (Severe, Verified 01/21/18 10:46) hallucanations, rash Iodine and Iodide Containing Produc Adverse Reaction (Verified 01/21/18 10:46) Diarrhea, emesis Past Medical History - General Information source: Patient, Relative - Social History Smoking Status: Never Smoker Chew tobacco use (# tins/day): No Frequency of alcohol use: None Drug Abuse: None Family History: Reviewed & Not Pertinent Patient has suicidal ideation: No Patient has homicidal ideation: No - Past Medical History Cardiac Medical History: Reports: Hx Coronary Artery Disease - RECENTLY SAW DR SALINAS, CARD CLEARANCE, Hx Heart Attack - - NO STENTS, NO BYPASS, Hx Hypercholesterolemia - "MILDLY HIGH" PER PT, Hx Hypertension - MEDS Denies: Hx Atrial Fibrillation, Hx Congestive Heart Failure, Hx Peripheral Vascular Disease, Hx Pulmonary Embolism, Hx Heart Murmur Pulmonary Medical History: Reports: Hx Asthma - H/O, NO CURRENT MEDS, Hx Pneumonia - H/O NOT RECENTLY Denies: Hx Bronchitis, Hx COPD, Hx Respiratory Failure, Hx Sleep Apnea, Hx Tuberculosis Neurological Medical History: Denies: Hx Cerebrovascular Accident, Hx Seizures Endocrine Medical History: Reports: Hx Diabetes Mellitus Type 2. Denies: Hx Graves' Disease, Hx Hyperthyroidism, Hx Hypothyroidism Renal/ Medical History: Denies: Hx Ovarian Cysts, Hx Peritoneal Dialysis, Hx Pelvic Inflammatory Disease Malignancy Medical History: Reports: Hx Breast Cancer. Denies: Hx Cervical Cancer, Hx Leukemia, Hx Lung Cancer, Hx Ovarian Cancer GI Medical History: Denies: Hx Crohn's Disease, Hx Gastroesophageal Reflux Disease, Hx Hiatal Hernia, Hx Irritable Bowel, Hx Liver Failure, Hx Pancreatitis , Hx Ulcer Musculoskeletal Medical History: Reports Hx Arthritis - GENERALIZED, Denies Hx Fibromyalgia, Denies Hx Muscular Dystrophy Traumatic Medical History: Reports: Hx Fractures - ORIF L ARM WITH PINS Infectious Medical History: Denies: Hx HIV Past Surgical History: Reports: Hx Hysterectomy. Denies: Hx Appendectomy, Hx Bowel Surgery, Hx Section, Hx Cholecystectomy, Hx Colostomy, Hx Coronary Artery Bypass Graft, Hx Gastric Bypass Surgery, Hx Herniorrhaphy, Hx Mastectomy, Hx Pacemaker, Hx Tonsillectomy, Hx Tubal Ligation - Immunizations Hx Diphtheria, Pertussis, Tetanus Vaccination: Yes Hx Pneumococcal Vaccination: 09/29/13 Review of Systems - Review of Systems Constitutional: No symptoms reported EENT: No symptoms reported Cardiovascular: No symptoms reported Respiratory: No symptoms reported Gastrointestinal: No symptoms reported Genitourinary: No symptoms reported Female Genitourinary: No symptoms reported Musculoskeletal: No symptoms reported Skin: See HPI Hematologic/Lymphatic: No symptoms reported Neurological/Psychological: No symptoms reported Physical Exam - Vital signs Vitals: Temp Pulse Resp BP Pulse Ox 100.7 F H 105 H 20 145/68 H 98 01/21/18 10:50 01/21/18 10:50 01/21/18 10:50 01/21/18 10:50 01/21/18 10:50 - Notes Notes: PHYSICAL EXAMINATION: GENERAL: chronically ill appearing and in no acute distress. HEAD: Atraumatic, normocephalic. EYES: Pupils equal round and reactive to light, extraocular movements intact, sclera anicteric, conjunctiva are normal. ENT: airway patent NECK: Normal range of motion, supple without lymphadenopathy LUNGS: CTAB and equal. No wheezes rales or rhonchi. HEART: Regular rate and rhythm without murmurs ABDOMEN: Soft, no tenderness. No guarding, no rebound EXTREMITIES: Normal range of motion, no pitting edema. No cyanosis. NEUROLOGICAL: Cranial nerves grossly intact. Normal sensory/motor exams. PSYCH: Normal mood, normal affect. SKIN: Warm, Dry, normal turgor, large horizontal incision with mild erythema surrounding to right chest, minimally tender, no obvious fluctuance or induration Course - Re-evaluation Re-evalutation: 01/21/18 13:33 pt febrile at 100.7F. given tylenol. pt has very large 23cm by 3cm by 12cm abscess vs hematoma vs necrotizing infection beneath incision site. Dr. Hurst , surgeon consulted and evaluated pt with myself, accepts admission at this time to drain this in the OR. Pt NPO after midnight, can take her normal home meds until then. 01/21/18 23:35 - Vital Signs Vital signs: Temp Pulse Resp BP Pulse Ox 100.9 F H 125 H 19 135/62 H 100 01/21/18 22:13 01/21/18 22:13 01/21/18 19:28 01/21/18 19:28 01/21/18 22:13 - Laboratory Result Diagrams: 01/21/18 14:13 01/21/18 14:13 Laboratory results interpreted by me: 01/21/18 01/21/18 01/21/18 10:54 11:20 14:13 Hgb 9.6 L Hct 30.9 L MCV 77 L MCH 24.0 L MCHC 31.1 L RDW 16.5 H Monocytes % 16.1 H Glucose POC Glucose 389 H AST Urine Glucose (UA) >=500 H Urine Urobilinogen 4.0 H 01/21/18 14:13 Hgb Hct MCV MCH MCHC RDW Monocytes % Glucose 295 H POC Glucose AST 13 L Urine Glucose (UA) Urine Urobilinogen Discharge - Discharge Clinical Impression: Abscess of breast, right Condition: Stable Disposition: ADMITTED INPATIENT Admitting Provider: Adaist Jack hurst Unit Admitted: Surgical Floor
[2018-01-21 15:04] LABS: ALANINE AMINOTRANSFERASE 16 U/L (9-52); ALBUMIN 3.5 g/dL (3.5-5.0); ALKALINE PHOSPHATASE 84 U/L (38-126); ANION GAP 13 (5-19); ASPARTATE AMINO TRANSFERASE 13 U/L (14-36); BILIRUBIN,DIRECT 0.4 mg/dL (0.0-0.4); BILIRUBIN,TOTAL 0.5 mg/dL (0.2-1.3); BLOOD UREA NITROGEN 14 mg/dL (7-20); CALCIUM 9.5 mg/dL (8.4-10.2); CARBON DIOXIDE 26 mmol/L (22-30); CHLORIDE 99 mmol/L (98-107); GLUCOSE 295 mg/dL (75-110); SODIUM 138.4 mmol/L (137-145); TOTAL PROTEIN 6.5 g/dL (6.3-8.2)
[2018-01-21] MEDS ORDERED: PIPERACILLIN/TAZOBACTAM 3.375 GM VIAL IV ONE (15:40)
--- NOTE | 2018-01-21 15:40 | RADIOLOGY REPORT (SQ) ---
EXAM DESCRIPTION: CT CHEST WITHOUT COMPLETED DATE/TIME: 01/21/2018 3:18 pm REASON FOR STUDY: right mastectomy 12/31, fever, redness, abscess? COMPARISON: Chest x-ray 01/21/2018 TECHNIQUE: CT scan performed of the chest without intravenous contrast. Images reviewed with lung, soft tissue and bone windows. Reconstructed coronal and sagittal MPR images reviewed. All images st ored on PACS. All CT scanners at this facility use dose modulation, iterative reconstruction, and/or weight based d osing when appropriate to reduce radiation dose to as low as reasonably achievable (ALARA). [facility]: Dose Right [facility]: CareDose [facility]: Dose Right [facility]: Teradose 4D [facility]: Smart Technologies RADIATION DOSE: CT Rad equipment meets quality standard of care and radiation dose reduction techniq ues were employed. CTDIvol: 21.1 mGy. DLP: 924 mGy-cm. mGy. LIMITATIONS: There is motion artifact. FINDINGS: LUNGS AND PLEURA: Mild atelectasis at the bilateral lower lobes. No pleural effusion or p neumothorax HILAR AND MEDIASTINAL STRUCTURES: No obvious pathologically enlarged lymph nodes on unenhanced CT. HEART AND VASCULAR STRUCTURES: No thoracic aortic aneurysm. The heart is mildly enlarged. No perica rdial effusion. UPPER ABDOMEN: No significant findings. Limited exam. THYROID AND OTHER SOFT TISSUES: The visualized thyroid gland is unremarkable. BONES: Multilevel degenerative changes are noted at the spine. HARDWARE: None in the chest. OTHER: Status post right mastectomy with large soft tissue density with multiple gas foci at the surg ical bed measuring approximately 9.3 (AP) x 23.2 (transverse) x 12.6 (craniocaudal) cm. IMPRESSION: 1. Status post right mastectomy with large soft tissue density and multiple gas foci of the surgical bed, worrisome for abscess/ necrotizing soft tissue infection. 2. Mild cardiomegaly. Mild bibasilar atelectasis. COMMENT: Pertinent findings on the imaging study reported as a CRITICAL RESULT to PARVIZ MCCORD PPI at15:31 hrs on 01/21/2018. Category of Critical Result: Status post right mastectomy with large soft tissue density and multiple gas foci of the surgical bed, worrisome for abscess/ necrotizing soft tissue infection. TECHNICAL DOCUMENTATION: JOB ID: [id number] ND- Quality ID # [id number]: Final reports with documentation of one or more dose reduction techniques (e.g., Au tomated exposure control, adjustment of the mA and/or kV according to patient size, use of iterative reconstruction technique) 2010 [employer]- All Rights Reserved Reading location - IP/workstation name: [email or web address]
[2018-01-21] MEDS ORDERED: ACETAMINOPHEN 325 MG TABLET ONE (21:21)
--- NOTE | 2018-01-21 22:07 | EKG REPORT ---
SEVERITY:- ABNORMAL ECG - SINUS TACHYCARDIA PROBABLE INFERIOR INFARCT, OLD CONSIDER ANTERIOR INFARCT : Confirmed by: Cinthia Aguero 21-Jan-2018 22:06:12
[2018-01-21] MEDS ORDERED: DEXTROSE 40% GEL 15 GM TUBE PO PRN ×2 (23:39)
[2018-01-21] MEDS ORDERED: GLUCAGON,HUMAN RECOMB 1 MG INJ SUBCUT PRN (23:39)
[2018-01-21] MEDS ORDERED: MORPHINE SULFATE 10 MG/ML INJ IV PRN (23:39)
[2018-01-21] MEDS ORDERED: DEXTROSE 50%-WATER 25 GM/50 ML DISP.SYRIN IV PRN ×2 (23:39)
[2018-01-21] MEDS ORDERED: PIPERACILLIN/TAZOBACTAM 3.375 GM VIAL IV SCH (23:45)
--- NOTE | 2018-01-21 23:54 | PDOC H&P ---
History of Present Illness Admission Date/PCP: 01/21/18 16:25 ALYSON OTT MD Patient complains of: swelling right mastectomy site History of Present Illness: ASHISH MENESES is a 67 year old female who had mastectomy right breast done byDr Castaneda on 12/31/17 for cancer. Patient came to ED for swelling right mastectomy site with mild pains. Past Medical History Cardiac Medical History: Reports: Coronary Artery Disease - RECENTLY SAW DR SALINAS, CARD CLEARANCE, Myocardial Infarction - - NO STENTS, NO BYPASS, Hyperlipidema - "MILDLY HIGH" PER PT, Hypertension - MEDS Denies: Atrial Fibrillation, Congestive Heart Failure, Peripheral Vascular Disease, Pulmonary Embolism, Heart Murmur Pulmonary Medical History: Reports: Asthma - H/O, NO CURRENT MEDS, Pneumonia - H /O NOT RECENTLY Denies: Bronchitis, Chronic Obstructive Pulmonary Disease (COPD), Respiratory Failure, Sleep Apnea, Tuberculosis Neurological Medical History: Denies: Seizures Endocrine Medical History: Reports: Diabetes Mellitus Type 2 Denies: Hyperthyroidism, Hypothyroidism Malignancy Medical History: Reports: Breast Cancer Denies: Cervical Cancer, Leukemia, Lung Cancer, Ovarian Cancer GI Medical History: Denies: Crohn's Disease, Gastroesophageal Reflux Disease, Hiatal Hernia Musculoskeltal Medical History: Reports: Arthritis - GENERALIZED Denies: Fibromyalgia Hematology: Reports: Anemia Denies: Hemophilia, Sickle Cell Disease Infectious Medical History: Denies: HIV Past Surgical History Past Surgical History: Reports: Hysterectomy Denies: Amputation, Appendectomy, Section, Cholecystectomy, Colostomy, Coronary Artery Bypass Graft, Gastric Bypass Surgery, Herniorrhaphy, Mastectomy, Pacemaker, Tonsillectomy, Tubal Ligation Social History Smoking Status: Never Smoker Frequency of Alcohol Use: None Hx Recreational Drug Use: No Drugs: Other Hx Prescription Drug Abuse: No Family History Family History: Reviewed & Not Pertinent Parental Family History Reviewed: Yes Children Family History Reviewed: No Sibling(s) Family History Reviewed.: No Medication/Allergy Home Medications: Amlodipine Besylate/Benazepril [Amlodipine-Benazepril 5-20 mg] 1 cap PO DAILY Furosemide [Lasix 40 mg Tablet] 40 mg PO BID 12/29/17 Glipizide [Glucotrol 10 mg Tablet] 10 mg PO DAILY 12/29/17 Insulin Detemir [Levemir Flextouch] 26 units SQ BID 12/29/17 Metformin HCl [Glucophage] 1,000 mg PO BIDBS 12/29/17 Metoprolol Succinate [Toprol XL 100 mg Tablet] 100 mg PO Q12 12/29/17 Rosuvastatin Calcium [Crestor 10 mg Tablet] 10 mg PO QHS 12/29/17 Sitagliptin Phosphate [Januvia] 100 mg PO QAM 12/29/17 Spironolactone [Aldactone 25 mg Tablet] 25 mg PO DAILY 12/29/17 Cholecalciferol (Vitamin D3) [Vitamin D3 2000 unit Tablet] 2,000 unit PO BID Cyanocobalamin (Vitamin B-12) [Vitamin B-12] 2,000 mcg PO DAILY 01/21/18 Ergocalciferol (Vitamin D2) [Drisdol 50,000 Unit (1.25MG) Capsule] 50,000 unit PO TH@1000 01/21/18 Letrozole [Femara 2.5 Mg Tablet] 2.5 mg PO DAILY 01/21/18 Allergies/Adverse Reactions: oxycodone HCl [From Percocet] Allergy (Severe, Verified 01/21/18 10:46) hallucanations, rash Iodine and Iodide Containing Produc Adverse Reaction (Verified 01/21/18 10:46) Diarrhea, emesis Review of Systems Constitutional: PRESENT: other - no fever/chills Eyes: PRESENT: other - no visual/hearing changes Cardiovascular: PRESENT: other - no cough /chest pains Gastrointestinal: PRESENT: other - no pains Genitourinary: PRESENT: other - no dysuria Physical Exam Vital Signs: Temp Pulse Resp BP Pulse Ox 100.9 F H 125 H 19 135/62 H 100 01/21/18 22:13 01/21/18 22:13 01/21/18 19:28 01/21/18 19:28 01/21/18 22:13 General appearance: PRESENT: no acute distress Head exam: PRESENT: atraumatic Eye exam: PRESENT: conjunctiva pink Mouth exam: PRESENT: moist Neck exam: PRESENT: full ROM Respiratory exam: PRESENT: clear to auscultation gary Cardiovascular exam: PRESENT: RRR Pulses: PRESENT: normal radial pulses Vascular exam: PRESENT: normal capillary refill GI/Abdominal exam: PRESENT: soft Rectal exam: PRESENT: deferred Extremities exam: PRESENT: full ROM Musculoskeletal exam: PRESENT: ambulatory Neurological exam: PRESENT: alert, oriented to person, oriented to place, oriented to time, oriented to situation Skin exam: PRESENT: other - + swelling right mastectomy site Results Impressions: Chest X-Ray 01/21/18 11:03 IMPRESSION: Soft tissue findings worrisome for right breast abscess with a 5 cm air-fluid level and punctate smaller air bubbles seen along the right chest soft tissues. Findings discussed with the emergency room attending physician Chest CT 01/21/18 15:00 IMPRESSION: 1. Status post right mastectomy with large soft tissue density and multiple gas foci of the surgical bed, worrisome for abscess/ necrotizing soft tissue infection. 2. Mild cardiomegaly. Mild bibasilar atelectasis. Assessment & Plan - Time Time Spent: 30 to 50 Minutes - Inpatient Certification Medical Necessity: Need For IV Fluids, Need for IV Antibiotics, Need for Surgery - Plan Summary Plan Summary: IV antibiotics I&D in am and possible VAC placement
[2018-01-22] MEDS ORDERED: PIPERACILLIN/TAZOBACTAM 3.375 GM VIAL IV ONE (01:16)
[2018-01-22] MEDS: PIPERACILLIN/TAZOBACTAM 3.375 GM VIAL IV PRN ×2 (02:14→06:45)
[2018-01-22] MEDS ORDERED: PIPERACILLIN SODIUM/TAZOBACTAM 3.375 GM in NORMAL SALINE 100 ML IV SCH (06:00)
[2018-01-22] MEDS: NORMAL SALINE 1000 ML 1,000 ML IV SCH ×3 (06:49→17:26)
[2018-01-22 07:23] LABS: ABSOLUTE BASOPHILS # (AUTO) 0.1 10^3/uL (0.0-0.2); ABSOLUTE LYMPHOCYTES (AUTO) 1.2 10^3/uL (0.5-4.7); ABSOLUTE MONOCYTES (AUTO) 1.2 10^3/uL (0.1-1.4); ABSOLUTE NEUT (AUTO) 3.5 10^3/uL (1.7-8.2); EOSINOPHILS % (AUTO) 0.1 % (0-6); HEMATOCRIT 30.6 % (36.0-47.0); HEMOGLOBIN 9.7 g/dL (12.0-15.5); LYMPHOCYTES % (AUTO) 20.3 % (13-45); MEAN CORPUSCULAR HEMOGLOBIN 24.3 pg (27.0-33.4); MEAN CORPUSCULAR HGB CONC 31.7 g/dL (32.0-36.0); MEAN CORPUSCULAR VOLUME 77 fl (80-97); MONOCYTES % (AUTO) 19.9 % (3-13); PLATELET COUNT 400 10^3/uL (150-450); RED BLOOD COUNT 3.99 10^6/uL (3.72-5.28); RED CELL DISTRIBUTION WIDTH 16.4 % (11.5-14.0); SEGMENTED NEUTROPHILS % (AUTO) 58.7 % (42-78); TOTAL CELLS COUNTED % (AUTO) 100 %
[2018-01-22 07:36] LABS: INTERNATIONAL RATION (INR) 1.07; PROTHROMBIN TIME 14.4 SEC (11.4-15.4)
[2018-01-22 07:44] LABS: ANION GAP 16 (5-19); BLOOD UREA NITROGEN 10 mg/dL (7-20); CALCIUM 9.5 mg/dL (8.4-10.2); CARBON DIOXIDE 22 mmol/L (22-30); CHLORIDE 102 mmol/L (98-107); GLUCOSE 336 mg/dL (75-110); POTASSIUM 5.1 mmol/L (3.6-5.0); SODIUM 139.9 mmol/L (137-145)
[2018-01-22] MEDS ORDERED: FENTANYL CITRATE INJ/PF 100 MCG/2 ML AMPUL ONE (09:56)
[2018-01-22] MEDS ORDERED: PROPOFOL INJ 200 MG/20 ML VIAL IV ONE (09:57)
[2018-01-22] MEDS ORDERED: MIDAZOLAM 2 MG/2 ML INJ ONE (09:57)
[2018-01-22] MEDS ORDERED: PROMETHAZINE HCL INJ 25 MG/1 ML VIAL IV PRN (11:41)
[2018-01-22] MEDS ORDERED: FENTANYL CITRATE INJ/PF 100 MCG/2 ML AMPUL IV PRN ×3 (11:41)
[2018-01-22] MEDS ORDERED: DIPHENHYDRAMINE HCL 50 MG/ML VIAL IV PRN (11:41)
[2018-01-22] MEDS ORDERED: MORPHINE SULFATE 10 MG/ML INJ ONE (12:32)
[2018-01-22] MEDS ORDERED: INSULIN REG, HUMAN 100 UNIT/ML 3 ML VIAL (PYX) ONE ×2 (12:32→13:52)
[2018-01-22] MEDS ORDERED: INSULIN LISPRO 100 UNIT/ML 3 ML VIAL ONE ×2 (12:37→13:53)
[2018-01-22] MEDS ORDERED: ACETAMINOPHEN 325 MG TABLET ONE (12:37)
[2018-01-22] MEDS: INSULIN LISPRO 100 UNIT/ML 3 ML VIAL SUBCUT PRN ×3 (12:40→22:16)
[2018-01-22] MEDS: ACETAMINOPHEN 325 MG TABLET PO PRN ×2 (12:40→18:07)
--- NOTE | 2018-01-22 13:03 | RADIOLOGY REPORT (SQ) ---
EXAM DESCRIPTION: CHEST SINGLE VIEW COMPLETED DATE/TIME: 01/22/2018 11:18 am REASON FOR STUDY: Follow-up abscess. Status post right mastectomy. COMPARISON: CT of chest without contrast 01/21/2018. PA and lateral chest 01/21/2018. EXAM PARAMETERS: NUMBER OF VIEWS: One view. TECHNIQUE: Single frontal radiographic view of the chest acquired. RADIATION DOSE: NA LIMITATIONS: None. FINDINGS: LUNGS AND PLEURA: Linear densities at both lung bases could represent scarring. MEDIASTINUM AND HILAR STRUCTURES: No masses. Contour normal. HEART AND VASCULAR STRUCTURES: Cardiomegaly. Pulmonary vasculature normal. BONES: No acute findings. HARDWARE: None in the chest. OTHER: Interval placement of left central venous line with tip at the SVC. Prominent soft tissue gas overlying the right chest wall consistent with abscess. IMPRESSION: 1. Right chest wall abscess or infected hematoma. Status post right mastectomy. Borde rline cardiomegaly. Interval placement of left central venous line at SVC. TECHNICAL DOCUMENTATION: JOB ID: [id number] [employer]- All Rights Reserved Reading location - IP/workstation name: [email or web address]
[2018-01-22] MEDS ORDERED: NORMAL SALINE 500 ML IV ONE (13:15)
--- NOTE | 2018-01-22 13:15 | OPERATIVE REPORT E ---
Operative Report NAME: ASHISH MENESES : 1950 AGE: 67Y DATE OF SURGERY: 01/22/2018 ROOM: 414 PREOPERATIVE DIAGNOSIS: Postoperative hematoma and abscess on the mastectomy site. POSTOPERATIVE DIAGNOSIS: Postoperative hematoma and abscess on the mastectomy site. PROCEDURE: 1. Evacuation of hematoma and abscess on the right breast with debridement and pulse lavage and placement of a wound VAC. 2. As part of the procedure, the patient had a left subclavian vein triple-lumen catheter inserted by Dr. Hurst under local anesthesia prior to evacuation of hematoma. SURGEON: EPI HURST M.D. ANESTHESIA: General. DESCRIPTION OF PROCEDURE: For the subclavian vein, the patient was placed in a slight Trendelenburg position. The left neck and left infraclavicular area was then prepped and draped in the usual sterile fashion. An attempt was done to puncture the left internal jugular vein, but was unsuccessful. Next, local anesthesia infiltrated under the left clavicular area and the left subclavian vein was then punctured and guidewire passed through the needle towards the superior vena cava. The needle was removed and puncture site dilated and a triple-lumen catheter inserted through the guidewire to a distance of about 18 cm. The guidewire was removed and all 3 ports easily aspirated blood and instilled saline also. The catheter was then anchored to the skin with 3-0 silk and a Biopatch was placed at the insertion site and a transparent dressing placed over it. Chest x-ray was performed and showed there is no pneumothorax and the tip of the catheter right of the superior vena cava. The patient tolerated it well. Next, the patient subsequently had general anesthesia and after adequate general anesthesia, the patient was in supine position and the right previous mastectomy site was then prepped and draped in the usual sterile fashion. All the sutures were then incised and the whole incision was opened. A lot of purulent material in the area was subsequently evacuated with suction and manual removal. Cultures were obtained. The surface of the mastectomy site was subsequently gently shaved primarily with a 15 blade and a blunter instrument. The cavity was then copiously irrigated with 3 L of saline. Hemostasis partially obtained with cautery. The length of the previous mastectomy roughly measured about 30 cm. The surface of the mastectomy was primarily under muscle area. Further hemostasis obtained with cautery. Next, a wound VAC using the large and small foam was replaced over the wound and transparent adhesive placed over the foam. The wound VAC was subsequently placed over the small opening that was created in between the 2 foams and connected to the Hemovac. This suctioned the area quite well. It was set at -125 mmHg suction. The patient tolerated the procedure well. Needle, instrument, and sponge counts were all correct. Estimated blood loss about 30-40 mL. The patient tolerated the procedure well and was brought to the recovery room in a satisfactory condition. DICTATING PHYSICIAN: EPI HURST M.D. [id number] PHY#: [id number] ID: [id number] JOB#: [id number] ACCT: [id number] cc:EPI HURST M.D. >
[2018-01-22] MEDS ORDERED: VANCOMYCIN HCL 0 MG in DEXTROSE 5%-WATER 250 ML IV NR (14:15)
[2018-01-22] MEDS: PIPERACILLIN SODIUM/TAZOBACTAM 3.375 GM in NORMAL SALINE 100 ML IV SCH ×3 (14:17→21:04)
[2018-01-22] MEDS: METFORMIN HCL 500 MG TABLET PO SCH (16:08)
--- NOTE | 2018-01-22 17:00 | PDOC CONSULTATION ---
Consultation Consult Date: 01/22/18 Attending physician:: EPI AVITIA Consult reason:: Medical management of diabetes, hypertension and heart failure History of Present Illness Admission Date/PCP: 01/22/18 15:51 ALYSON OTT MD Patient complains of: Right breast incisional pain and fever History of Present Illness: ASHISH MENESES is a 67 year old -[place] female past medical history of diabetes mellitus type 2 on insulin, essential hypertension, diastolic heart failure and morbid obesity; who presents to [facility]'s emergency room on 720 with complaints of fever and pain around her right breast incision. Patient underwent right mastectomy on 12/31/[address] Phelps. She states her surgery course was uneventful up until the last several days. She began running low-grade fever and noted increasing pain around her right breast incision. She presented to the ER at [place] and was admitted by Dr. Avitia the surgeon environmental resource specialist. She was taken to the OR earlier today for incision and drainage of right breast hematoma and evacuation of a moderate amount of purulent discharge. Cultures were obtained during surgery are pending. Wound VAC was placed. Dr. Avitia has asked us to help assist him with her medical management Past Medical History Cardiac Medical History: Reports: Coronary Artery Disease - RECENTLY SAW DR SALINAS, CARD CLEARANCE, Myocardial Infarction - - NO STENTS, NO BYPASS, Hyperlipidema - "MILDLY HIGH" PER PT, Hypertension - MEDS Denies: Atrial Fibrillation, Congestive Heart Failure, Peripheral Vascular Disease, Pulmonary Embolism, Heart Murmur Pulmonary Medical History: Reports: Asthma - H/O, NO CURRENT MEDS, Pneumonia - H /O NOT RECENTLY Denies: Bronchitis, Chronic Obstructive Pulmonary Disease (COPD), Respiratory Failure, Sleep Apnea, Tuberculosis Neurological Medical History: Denies: Seizures Endocrine Medical History: Reports: Diabetes Mellitus Type 2 Denies: Hyperthyroidism, Hypothyroidism Malignancy Medical History: Reports: Breast Cancer Denies: Cervical Cancer, Leukemia, Lung Cancer, Ovarian Cancer GI Medical History: Denies: Crohn's Disease, Gastroesophageal Reflux Disease, Hiatal Hernia Musculoskeltal Medical History: Reports: Arthritis - GENERALIZED Denies: Fibromyalgia Psychiatric Medical History: Denies: Depression Hematology: Reports: Anemia Denies: Hemophilia, Sickle Cell Disease Infectious Medical History: Denies: HIV Past Surgical History Past Surgical History: Reports: Hysterectomy, Mastectomy - Mastectomy on 2017 Denies: Amputation, Appendectomy, Section, Cholecystectomy, Colostomy, Coronary Artery Bypass Graft, Gastric Bypass Surgery, Herniorrhaphy, Pacemaker, Tonsillectomy, Tubal Ligation Social History Information Source: Patient Lives with: Family Smoking Status: Never Smoker Frequency of Alcohol Use: None Hx Recreational Drug Use: No Drugs: Other Hx Prescription Drug Abuse: No - Advance Directive Resuscitation Status: Full Code Surrogate healthcare decision maker:: Daughter Tory Family History Family History: CAD, DM, Hyperlipidemia, Hypertension Parental Family History Reviewed: Yes Children Family History Reviewed: Yes Sibling(s) Family History Reviewed.: Yes Medication/Allergy Home Medications: Amlodipine Besylate/Benazepril [Amlodipine-Benazepril 5-20 mg] 1 cap PO DAILY Furosemide [Lasix 40 mg Tablet] 40 mg PO BID 12/29/17 Glipizide [Glucotrol 10 mg Tablet] 10 mg PO DAILY 12/29/17 Insulin Detemir [Levemir Flextouch] 26 units SQ BID 12/29/17 Metformin HCl [Glucophage] 1,000 mg PO BIDBS 12/29/17 Metoprolol Succinate [Toprol XL 100 mg Tablet] 100 mg PO Q12 12/29/17 Rosuvastatin Calcium [Crestor 10 mg Tablet] 10 mg PO QHS 12/29/17 Sitagliptin Phosphate [Januvia] 100 mg PO QAM 12/29/17 Spironolactone [Aldactone 25 mg Tablet] 25 mg PO DAILY 12/29/17 Cholecalciferol (Vitamin D3) [Vitamin D3 2000 unit Tablet] 2,000 unit PO BID Cyanocobalamin (Vitamin B-12) [Vitamin B-12] 2,000 mcg PO DAILY 01/21/18 Ergocalciferol (Vitamin D2) [Drisdol 50,000 Unit (1.25MG) Capsule] 50,000 unit PO TH@1000 01/21/18 Letrozole [Femara 2.5 Mg Tablet] 2.5 mg PO DAILY 01/21/18 Allergies/Adverse Reactions: oxycodone HCl [From Percocet] Allergy (Severe, Verified 01/21/18 10:46) hallucanations, rash Iodine and Iodide Containing Produc Adverse Reaction (Verified 01/21/18 10:46) Diarrhea, emesis Review of Systems Constitutional: PRESENT: fatigue, fever(s). ABSENT: chills, headache(s), weight gain, weight loss Eyes: ABSENT: visual disturbances Ears: ABSENT: hearing changes Cardiovascular: ABSENT: chest pain, dyspnea on exertion, edema, orthropnea, palpitations Respiratory: PRESENT: cough. ABSENT: hemoptysis Gastrointestinal: ABSENT: abdominal pain, constipation, diarrhea, hematemesis, hematochezia, nausea, vomiting Genitourinary: ABSENT: dysuria, hematuria Musculoskeletal: ABSENT: joint swelling Integumentary: PRESENT: wounds - Right breast incision swelling. ABSENT: rash Neurological: ABSENT: abnormal gait, abnormal speech, confusion, dizziness, focal weakness, syncope Psychiatric: ABSENT: anxiety, depression, homidical ideation, suicidal ideation Endocrine: ABSENT: cold intolerance, heat intolerance, polydipsia, polyuria Hematologic/Lymphatic: ABSENT: easy bleeding, easy bruising Physical Exam Vital Signs: Temp Pulse Resp BP Pulse Ox 98.8 F 118 H 20 113/54 L 95 01/22/18 14:35 01/22/18 14:35 01/22/18 14:30 01/22/18 14:35 01/22/18 14:35 General appearance: PRESENT: no acute distress, morbidly obese, well-developed, well-nourished Head exam: PRESENT: atraumatic, normocephalic Eye exam: PRESENT: conjunctiva pink, EOMI, PERRLA. ABSENT: scleral icterus Ear exam: PRESENT: normal external ear exam Mouth exam: PRESENT: moist, tongue midline Neck exam: ABSENT: carotid bruit, JVD, lymphadenopathy, thyromegaly Respiratory exam: PRESENT: clear to auscultation gary. ABSENT: rales, rhonchi, wheezes Cardiovascular exam: PRESENT: RRR. ABSENT: diastolic murmur, rubs, systolic murmur Pulses: PRESENT: normal dorsalis pedis pul Vascular exam: PRESENT: normal capillary refill GI/Abdominal exam: PRESENT: normal bowel sounds, soft. ABSENT: distended, guarding, mass, organolmegaly, rebound, tenderness Rectal exam: PRESENT: deferred Extremities exam: PRESENT: full ROM. ABSENT: calf tenderness, clubbing, pedal edema Neurological exam: PRESENT: alert, awake, oriented to person, oriented to place , oriented to time, oriented to situation, CN II-XII grossly intact. ABSENT: motor sensory deficit Psychiatric exam: PRESENT: appropriate affect, normal mood. ABSENT: homicidal ideation, suicidal ideation Skin exam: PRESENT: dry, intact, warm, other - Wound VAC to right breast. ABSENT: cyanosis, rash Results Impressions: Chest CT 01/21/18 15:00 IMPRESSION: 1. Status post right mastectomy with large soft tissue density and multiple gas foci of the surgical bed, worrisome for abscess/ necrotizing soft tissue infection. 2. Mild cardiomegaly. Mild bibasilar atelectasis. Chest X-Ray 01/22/18 11:00 IMPRESSION: 1. Right chest wall abscess or infected hematoma. Status post right mastectomy. Borderline cardiomegaly. Interval placement of left central venous line at [facility] [place]. Assessment & Plan - Diagnosis (1) Abscess of breast, right Is this a current diagnosis for this admission?: Yes Plan: Patient is postop incision and drainage of hematoma and evacuation of purulent discharge. Wound cultures were taken intraoperatively and are pending. Patient is presently on IV Zosyn. We will add IV vancomycin to cover for MRSA pending culture results (2) Diabetes mellitus type 2 in obese Is this a current diagnosis for this admission?: Yes Plan: We will hold metformin. Continue glyburide, insulin and Januvia. Sliding scale insulin before meals and at bedtime (3) Essential hypertension Is this a current diagnosis for this admission?: Yes Plan: We will hold hydrochlorothiazide. Restart beta-dora (4) Breast cancer Qualifiers: Laterality: right Is this a current diagnosis for this admission?: Yes Plan: She will follow-up with her surgeon and oncology postoperatively (5) Chronic diastolic heart failure Is this a current diagnosis for this admission?: Yes Plan: Presently she is euvolemic more so on the dry side. We will hold Lasix today. (6) Morbid obesity Is this a current diagnosis for this admission?: Yes Plan: Counseled (7) Dyslipidemia Is this a current diagnosis for this admission?: Yes Plan: Continue statin - Time Time Spent: 50 to 70 Minutes Total Critical Time (Minutes): 35 Medications reviewed and adjusted accordingly: Yes Anticipated discharge: Home with Homehealth
[2018-01-22] MEDS: VANCOMYCIN HCL 1,500 MG in DEXTROSE 5%-WATER 250 ML IV SCH (17:18)
[2018-01-22] MEDS ORDERED: INSULIN DETEMIR 100 UNIT/ML 3 ML PEN SUBCUT SCH (18:00)
[2018-01-22] MEDS: ATORVASTATIN CALCIUM 20 MG TABLET PO SCH (22:15)
[2018-01-23] MEDS: METOPROLOL SUCCINATE 50 MG TAB.SR.24H PO SCH ×3 (00:24→21:31)
[2018-01-23] MEDS: ACETAMINOPHEN 325 MG TABLET PO PRN ×2 (02:48→21:31)
[2018-01-23] MEDS: PIPERACILLIN SODIUM/TAZOBACTAM 3.375 GM in NORMAL SALINE 100 ML IV SCH ×4 (02:49→21:31)
[2018-01-23] MEDS: NORMAL SALINE 1000 ML 1,000 ML IV SCH (06:46)
[2018-01-23] MEDS: VANCOMYCIN HCL 1,500 MG in DEXTROSE 5%-WATER 250 ML IV SCH (06:46)
[2018-01-23] MEDS: METFORMIN HCL 500 MG TABLET PO SCH ×2 (08:46→16:24)
[2018-01-23] MEDS: INSULIN LISPRO 100 UNIT/ML 3 ML VIAL SUBCUT PRN ×4 (08:46→21:30)
[2018-01-23] MEDS: SITAGLIPTIN PHOSPHATE 50 MG TABLET PO SCH (08:47)
[2018-01-23] MEDS ORDERED: (PENDING PHARMACY ID) (Cyanocobalamin (Vitamin B-12) [Vitamin B-12] 2,000 MCG) PO SCH (10:00)
[2018-01-23] MEDS ORDERED: INSULIN DETEMIR 100 UNIT/ML 3 ML PEN SUBCUT ONE (11:00)
[2018-01-23] MEDS ORDERED: FUROSEMIDE 40 MG TABLET PO ONE (11:15)
[2018-01-23] MEDS: LETROZOLE 2.5 MG TABLET PO SCH (11:54)
[2018-01-23] MEDS: GLIPIZIDE 10 MG TABLET PO SCH (11:54)
[2018-01-23] MEDS: SPIRONOLACTONE 25 MG TABLET PO SCH (11:55)
[2018-01-23] MEDS: CYANOCOBALAMIN (VITAMIN B-12) 1,000 MCG TABLET PO SCH (11:55)
[2018-01-23] MEDS ORDERED: OXYCODONE-ACETAMINOPHEN 5-325 MG TABLET PO PRN (14:35)
[2018-01-23] MEDS: TRAMADOL HCL 50 MG TABLET PO PRN (15:40)
--- NOTE | 2018-01-23 16:34 | PDOC PROGRESS REPORT ---
Subjective Progress Note for:: 01/23/18 Subjective:: Patient is seen resting in bedside chair. She is awake, alert oriented 3. She denies any chest pain, shortness breath or cough. She is having some mild right breast discomfort from the surgery. She states overall it feels much improved. She is having pain in her left lower extremity from her fall at home. Denies any nausea, vomiting or abdominal pain. She denies any diarrhea. She denies any fever chills. Remaining review of systems are negative. Daughter is at the bedside as well. Reason For Visit: RIGHT BREAST HEMATOMA EVACUATION S/P MASTECTOMY Physical Exam Vital Signs: Temp Pulse Resp BP Pulse Ox 98.3 F 100 16 131/72 H 99 01/23/18 07:23 01/23/18 07:23 01/23/18 07:23 01/23/18 07:23 01/23/18 08:04 Intake & Output 01/22/18 01/23/18 01/24/18 06:59 06:59 06:59 Intake Total 1222 Balance 1222 General appearance: PRESENT: no acute distress, morbidly obese, well-developed, well-nourished Head exam: PRESENT: atraumatic, normocephalic Eye exam: PRESENT: conjunctiva pink, EOMI, PERRLA. ABSENT: scleral icterus Ear exam: PRESENT: normal external ear exam Mouth exam: PRESENT: moist, tongue midline Neck exam: ABSENT: carotid bruit, JVD, lymphadenopathy, thyromegaly Respiratory exam: PRESENT: clear to auscultation gary. ABSENT: rales, rhonchi, wheezes Cardiovascular exam: PRESENT: RRR. ABSENT: diastolic murmur, rubs, systolic murmur Pulses: PRESENT: normal carotid pulses, normal radial pulses Vascular exam: PRESENT: normal capillary refill GI/Abdominal exam: PRESENT: normal bowel sounds, soft. ABSENT: distended, guarding, mass, organolmegaly, rebound, tenderness Rectal exam: PRESENT: deferred Extremities exam: PRESENT: full ROM. ABSENT: calf tenderness, clubbing, pedal edema Musculoskeletal exam: PRESENT: ambulatory, full ROM, tenderness - right chest wall Neurological exam: PRESENT: alert, awake, oriented to person, oriented to place , oriented to time, oriented to situation, CN II-XII grossly intact. ABSENT: motor sensory deficit Psychiatric exam: PRESENT: appropriate affect, normal mood. ABSENT: homicidal ideation, suicidal ideation Skin exam: PRESENT: dry, intact, warm. ABSENT: cyanosis, rash Results Impressions: Chest CT 01/21/18 15:00 IMPRESSION: 1. Status post right mastectomy with large soft tissue density and multiple gas foci of the surgical bed, worrisome for abscess/ necrotizing soft tissue infection. 2. Mild cardiomegaly. Mild bibasilar atelectasis. Chest X-Ray 01/22/18 11:00 IMPRESSION: 1. Right chest wall abscess or infected hematoma. Status post right mastectomy. Borderline cardiomegaly. [place] [facility] [place] & Plan - Diagnosis (1) Abscess of breast, right Is this a current diagnosis for this admission?: Yes Plan: Patient is postop incision and drainage of hematoma and evacuation of purulent discharge. Wound cultures were taken intraoperatively and are pending. Wound culture is growing gram negative rods Patient is presently on IV Zosyn. Will d/ c vancomycin (2) Diabetes mellitus type 2 in obese Is this a current diagnosis for this admission?: Yes Plan: Will increase lantus dose due to continued hyperglycemia Continue glyburide, insulin and Januvia. Sliding scale insulin before meals and at bedtime (3) Essential hypertension Is this a current diagnosis for this admission?: Yes Plan: We will hold hydrochlorothiazide. Restart beta-dora (4) Breast cancer Qualifiers: Laterality: right Is this a current diagnosis for this admission?: Yes Plan: She will follow-up with her surgeon and oncology postoperatively (5) Chronic diastolic heart failure Is this a current diagnosis for this admission?: Yes Plan: Presently she is euvolemic more so on the dry side. We will hold Lasix today. (6) Morbid obesity Is this a current diagnosis for this admission?: Yes Plan: Counseled (7) Dyslipidemia Is this a current diagnosis for this admission?: Yes Plan: Continue statin - Time Time Spent with patient: 25-34 minutes Total Critical Time (Minutes): 20 Medications reviewed and adjusted accordingly: Yes Anticipated discharge: Home with Homehealth
--- NOTE | 2018-01-23 17:44 | PDOC PROGRESS REPORT ---
Subjective Progress Note for:: 01/23/18 Subjective:: no pains right mastectomy site Reason For Visit: RIGHT BREAST HEMATOMA EVACUATION S/P MASTECTOMY Physical Exam Vital Signs: Temp Pulse Resp BP Pulse Ox 98.4 F 105 H 18 134/55 H 99 01/23/18 15:39 01/23/18 15:39 01/23/18 15:39 01/23/18 15:39 01/23/18 15:39 Intake & Output 01/22/18 01/23/18 01/24/18 06:59 06:59 06:59 Intake Total 1222 Balance 1222 Exam: Vac in place at right mastectomy site. Results Impressions: Chest CT 01/21/18 15:00 IMPRESSION: 1. Status post right mastectomy with large soft tissue density and multiple gas foci of the surgical bed, worrisome for abscess/ necrotizing soft tissue infection. 2. Mild cardiomegaly. Mild bibasilar atelectasis. Chest X-Ray 01/22/18 11:00 IMPRESSION: 1. Right chest wall abscess or infected hematoma. Status post right mastectomy. Borderline cardiomegaly. [place] [facility] [place] Assessment & Plan - Time Time Spent with patient: 15-24 minutes - Plan Summary Plan Summary: Has g= rods on gmstain and should be covered by Zosyn. No sensitivity results Continue wound vac and possible delayed primary closure after a few days of wound vac.
[2018-01-23] MEDS: FUROSEMIDE 40 MG TABLET PO SCH (17:58)
[2018-01-23] MEDS: INSULIN DETEMIR 100 UNIT/ML 3 ML PEN SUBCUT SCH (17:59)
[2018-01-23] MEDS ORDERED: INSULIN DETEMIR 100 UNIT/ML 3 ML PEN SUBCUT SCH (18:00)
[2018-01-23] MEDS: ATORVASTATIN CALCIUM 20 MG TABLET PO SCH (21:31)
[2018-01-24] MEDS: PIPERACILLIN SODIUM/TAZOBACTAM 3.375 GM in NORMAL SALINE 100 ML IV SCH ×2 (04:07→08:16)
[2018-01-24] MEDS: INSULIN LISPRO 100 UNIT/ML 3 ML VIAL SUBCUT PRN ×4 (08:05→21:47)
[2018-01-24] MEDS: SITAGLIPTIN PHOSPHATE 50 MG TABLET PO SCH (08:07)
[2018-01-24] MEDS: METFORMIN HCL 500 MG TABLET PO SCH ×2 (08:07→18:41)
[2018-01-24] MEDS: GLIPIZIDE 10 MG TABLET PO SCH (10:23)
[2018-01-24] MEDS: METOPROLOL SUCCINATE 50 MG TAB.SR.24H PO SCH ×2 (10:23→21:59)
[2018-01-24] MEDS: FUROSEMIDE 40 MG TABLET PO SCH ×2 (10:24→18:41)
[2018-01-24] MEDS: LETROZOLE 2.5 MG TABLET PO SCH (10:24)
[2018-01-24] MEDS: SPIRONOLACTONE 25 MG TABLET PO SCH (10:25)
[2018-01-24] MEDS: CYANOCOBALAMIN (VITAMIN B-12) 1,000 MCG TABLET PO SCH (10:25)
[2018-01-24] MEDS: INSULIN DETEMIR 100 UNIT/ML 3 ML PEN SUBCUT SCH ×2 (10:27→18:40)
--- NOTE | 2018-01-24 12:49 | PDOC PROGRESS REPORT ---
Subjective Progress Note for:: 01/24/18 Subjective:: No complaints. Reason For Visit: RIGHT BREAST HEMATOMA EVACUATION S/P MASTECTOMY Physical Exam Vital Signs: Temp Pulse Resp BP Pulse Ox 98.1 F 91 18 128/72 H 97 01/24/18 08:14 01/24/18 08:14 01/24/18 08:14 01/24/18 08:14 01/24/18 08:14 Intake & Output 01/23/18 01/24/18 01/25/18 06:59 06:59 06:59 Intake Total 1222 2232 Output Total 450 Balance 1222 1782 General appearance: PRESENT: no acute distress, cooperative Respiratory exam: PRESENT: other - Mastectomy site wound with wound VAC in place. No surrounding erythema. Cardiovascular exam: PRESENT: RRR Results Impressions: Chest CT 01/21/18 15:00 IMPRESSION: 1. Status post right mastectomy with large soft tissue density and multiple gas foci of the surgical bed, worrisome for abscess/ necrotizing soft tissue infection. 2. Mild cardiomegaly. Mild bibasilar atelectasis. Chest X-Ray 01/22/18 11:00 IMPRESSION: 1. Right chest wall abscess or infected hematoma. Status post right mastectomy. Borderline cardiomegaly. Interval placement of left central venous line at [facility] [place]. Assessment & Plan - Diagnosis (1) Abscess of breast, right Is this a current diagnosis for this admission?: Yes Plan: Status post drainage and application of wound VAC. Will change antibiotics to Ancef since she is growing out nearly pansensitive proteus mirabilis.
[2018-01-24] MEDS: ACETAMINOPHEN 325 MG TABLET PO PRN (17:01)
[2018-01-24] MEDS: CEFAZOLIN 1 GM/D5W RTU 1 GM/50 ML RTUPB IV SCH ×2 (18:39→23:11)
--- NOTE | 2018-01-24 20:52 | PDOC PROGRESS REPORT ---
Subjective Progress Note for:: 01/24/18 Subjective:: Patient is seen resting in bedside chair. She is awake, alert oriented 3. She denies any chest pain, shortness breath or cough. She is having some mild right breast discomfort from the surgery. She states overall it feels much improved. Denies any nausea, vomiting or abdominal pain. She denies any diarrhea. She denies any fever chills. Remaining review of systems are negative. Daughter is at the bedside as well. Reason For Visit: RIGHT BREAST HEMATOMA EVACUATION S/P MASTECTOMY Physical Exam Vital Signs: Temp Pulse Resp BP Pulse Ox 98.1 F 96 18 129/70 H 100 01/24/18 19:57 01/24/18 19:57 01/24/18 19:57 01/24/18 19:57 01/24/18 19:57 Intake & Output 01/23/18 01/24/18 01/25/18 06:59 06:59 06:59 Intake Total 1222 2232 Output Total 450 Balance 1222 1782 General appearance: PRESENT: no acute distress, morbidly obese, well-developed, well-nourished Head exam: PRESENT: atraumatic, normocephalic Eye exam: PRESENT: conjunctiva pink, EOMI, PERRLA. ABSENT: scleral icterus Ear exam: PRESENT: normal external ear exam Mouth exam: PRESENT: moist, tongue midline Teeth exam: PRESENT: poor dentation Neck exam: ABSENT: carotid bruit, JVD, lymphadenopathy, thyromegaly Respiratory exam: PRESENT: clear to auscultation gary. ABSENT: rales, rhonchi, wheezes Cardiovascular exam: PRESENT: RRR. ABSENT: diastolic murmur, rubs, systolic murmur Pulses: PRESENT: normal carotid pulses, normal radial pulses Vascular exam: PRESENT: normal capillary refill GI/Abdominal exam: PRESENT: normal bowel sounds, soft. ABSENT: distended, guarding, mass, organolmegaly, rebound, tenderness Extremities exam: PRESENT: full ROM. ABSENT: calf tenderness, clubbing, pedal edema Musculoskeletal exam: PRESENT: ambulatory, tenderness - left lower leg Neurological exam: PRESENT: alert, awake, oriented to person, oriented to place , oriented to time, oriented to situation, CN II-XII grossly intact. ABSENT: motor sensory deficit Psychiatric exam: PRESENT: appropriate affect, normal mood. ABSENT: homicidal ideation, suicidal ideation Skin exam: PRESENT: dry, warm, other - wound vac to right breast Results Impressions: Chest CT 01/21/18 15:00 IMPRESSION: 1. Status post right mastectomy with large soft tissue density and multiple gas foci of the surgical bed, worrisome for abscess/ necrotizing soft tissue infection. 2. Mild cardiomegaly. Mild bibasilar atelectasis. Chest X-Ray 01/22/18 11:00 IMPRESSION: 1. Right chest wall abscess or infected hematoma. Status post right mastectomy. Borderline cardiomegaly. Interval placement of left central venous line at [facility] [place]. Assessment & Plan - Diagnosis (1) Abscess of breast, right Is this a current diagnosis for this admission?: Yes Plan: Patient is postop incision and drainage of hematoma and evacuation of purulent discharge. Wound cultures were taken intraoperatively and are pending. Wound culture is growing gram negative rods Patient is presently on IV Zosyn. (2) Diabetes mellitus type 2 in obese Is this a current diagnosis for this admission?: Yes Plan: Will increase lantus dose due to continued hyperglycemia Continue glyburide, insulin and Januvia. Sliding scale insulin before meals and at bedtime (3) Essential hypertension Is this a current diagnosis for this admission?: Yes Plan: We will hold hydrochlorothiazide. Restart beta-dora (4) Breast cancer Qualifiers: Laterality: right Is this a current diagnosis for this admission?: Yes Plan: She will follow-up with her surgeon and oncology postoperatively (5) Chronic diastolic heart failure Is this a current diagnosis for this admission?: Yes Plan: Presently she is euvolemic more so on the dry side. We will hold Lasix today. (6) Morbid obesity Is this a current diagnosis for this admission?: Yes Plan: Counseled (7) Dyslipidemia Is this a current diagnosis for this admission?: Yes Plan: Continue statin - Time Time Spent with patient: 25-34 minutes Total Critical Time (Minutes): 20 Medications reviewed and adjusted accordingly: Yes
[2018-01-24] MEDS ORDERED: NORMAL SALINE 10 ML SDV (AFTER EACH USE) IV PRN (21:37)
[2018-01-24] MEDS: TRAMADOL HCL 50 MG TABLET PO PRN (21:48)
[2018-01-24] MEDS: ATORVASTATIN CALCIUM 20 MG TABLET PO SCH (22:00)
[2018-01-25] MEDS: CEFAZOLIN 1 GM/D5W RTU 1 GM/50 ML RTUPB IV SCH ×2 (05:50→12:50)
[2018-01-25] MEDS: INSULIN LISPRO 100 UNIT/ML 3 ML VIAL SUBCUT PRN ×2 (09:04→14:26)
[2018-01-25] MEDS: SITAGLIPTIN PHOSPHATE 50 MG TABLET PO SCH (09:11)
[2018-01-25] MEDS: GLIPIZIDE 10 MG TABLET PO SCH (09:12)
[2018-01-25] MEDS: FUROSEMIDE 40 MG TABLET PO SCH (09:12)
[2018-01-25] MEDS: METFORMIN HCL 500 MG TABLET PO SCH (09:16)
[2018-01-25] MEDS: METOPROLOL SUCCINATE 50 MG TAB.SR.24H PO SCH (09:17)
[2018-01-25] MEDS: SPIRONOLACTONE 25 MG TABLET PO SCH (09:17)
[2018-01-25] MEDS: CYANOCOBALAMIN (VITAMIN B-12) 1,000 MCG TABLET PO SCH (09:18)
[2018-01-25] MEDS: INSULIN DETEMIR 100 UNIT/ML 3 ML PEN SUBCUT SCH (09:21)
[2018-01-25] MEDS: NORMAL SALINE 10 ML SDV (SCHEDULED) IV SCH ×2 (09:37→09:57)
[2018-01-25] MEDS: LETROZOLE 2.5 MG TABLET PO SCH (09:55)
--- NOTE | 2018-01-25 10:08 | PDOC PROGRESS REPORT ---
Subjective Progress Note for:: 01/25/18 Subjective:: Feels well. No complaints Reason For Visit: RIGHT BREAST HEMATOMA EVACUATION S/P MASTECTOMY Physical Exam Vital Signs: Temp Pulse Resp BP Pulse Ox 98.1 F 90 15 130/48 H 94 01/25/18 08:52 01/25/18 08:52 01/25/18 08:52 01/25/18 08:52 01/25/18 08:52 Intake & Output 01/24/18 01/25/18 01/26/18 06:59 06:59 06:59 Intake Total 2232 1100 Output Total 450 Balance 1782 1100 Weight 113.6 kg General appearance: PRESENT: no acute distress, cooperative Respiratory exam: PRESENT: clear to auscultation gary, other - No surrounding erythema. Wound VAC adhesive was not sticking well. Otherwise site looks okay Cardiovascular exam: PRESENT: RRR Extremities exam: PRESENT: other - No swelling and no tenderness Results Impressions: Chest CT 01/21/18 15:00 IMPRESSION: 1. Status post right mastectomy with large soft tissue density and multiple gas foci of the surgical bed, worrisome for abscess/ necrotizing soft tissue infection. 2. Mild cardiomegaly. Mild bibasilar atelectasis. Chest X-Ray 01/22/18 11:00 IMPRESSION: 1. Right chest wall abscess or infected hematoma. Status post right mastectomy. Borderline cardiomegaly. [place] [facility] [place] & Plan - Diagnosis (1) Abscess of breast, right Is this a current diagnosis for this admission?: Yes Plan: Status post drainage and application of wound VAC. Patient looks good. Will discharge patient home with a wound VAC. Follow-up with Dr. Phelps as an outpatient. Anticipate wound VAC needed for about a month. Will discharge patient home on p.o. Keflex for another week.
--- NOTE | 2018-01-25 10:35 | DISCHARGE SUMMARY E ---
Discharge Summary NAME: ASHISH MENESES : 1950 AGE: 67Y ADMITTED: 01/22/2018 DISCHARGED: 01/25/2018 DISCHARGE DIAGNOSES: 1. Right breast mastectomy site abscess. 2. Diastolic heart failure. 3. Hypertension. 4. Diabetes. PROCEDURE PERFORMED DURING HOSPITALIZATION: Debridement of right breast mastectomy site abscess performed by Dr. Hurst on 01/22/2018. HOSPITAL COURSE: The patient underwent the above mentioned procedure. She did well postoperatively. She responded well with the debridement. She was placed on a wound VAC. Wound VAC was set up for management at home. The patient is now being discharged to home in good condition. She is encouraged to stay active. Home health was arranged for the wound VAC. She may resume all of her home medications. Additional medication is Keflex 500 mg 1 p.o. t.i.d. for 1 week. She will follow up with Dr. Phelps in 1 week. She is to call for any problems. DICTATING PHYSICIAN: YOUNG HOANG M.D. [id number] Y#: [id number] ID: [id number] JOB#: [id number] ACCT: [id number] cc:YOUNG HOANG M.D. [facility],
[2018-01-25 15:47] VITALS: BP 132/58
== END 2018-01-25 17:00 | disposition home health service (06) | DRG 920 ==
LOC: ER 10:43 → INTOOBSV 16:25 → EH 16:25 → 4N 19:19 → OBSVTOIN 01-22 15:51 → 2S 01-24 15:09
PROVIDERS: ADMIT Surgery; ATTEND Surgery
PROC: 02HV33Z Insertion of Infusion Device into Superior Vena Cava, Percutaneous Approach (ICD-10-PCS; 2018-01-22)
PROC: 0HC Skin and Breast, Extirpation (ICD-10-PCS; principal; 2018-01-22 10:30)
DX: L76.32 Postprocedural hematoma of skin and subcutaneous tissue following other procedure (principal); Z68.41 Body mass index [BMI] 40.0-44.9, adult; I50.32 Chronic diastolic (congestive) heart failure; Y83.6 Removal of other organ (partial) (total) as the cause of abnormal reaction of the patient, or of later complication, without mention of misadventure at the time of the procedure; Z90.11 Acquired absence of right breast and nipple; N61.1 Abscess of the breast and nipple; I11.0 Hypertensive heart disease with heart failure; E11.9 Type 2 diabetes mellitus without complications; E66.01 Morbid (severe) obesity due to excess calories; I25.10 Atherosclerotic heart disease of native coronary artery without angina pectoris; M15.9 Polyosteoarthritis, unspecified; E78.00 Pure hypercholesterolemia, unspecified; J45.909 Unspecified asthma, uncomplicated; D64.9 Anemia, unspecified; Z79.4 Long term (current) use of insulin; Z79.899 Other long term (current) drug therapy; I25.2 Old myocardial infarction; Z90.710 Acquired absence of both cervix and uterus; Z88.6 Allergy status to analgesic agent; Z88.8 Allergy status to other drugs, medicaments and biological substances; Z91.81 History of falling; Z82.49 Family history of ischemic heart disease and other diseases of the circulatory system; Z83.3 Family history of diabetes mellitus
CPT/HCPCS: 36415; 400; 71045; 71046; 71250; 80048; 80053; 81001; 82803; 82962; 83605; 85025; 85610; 87040; 87070; 87075; 87077; 87086; 87186; 87205; 93005; 93010; 96360; 99285; C1751; G0378; J0690; J1642; J1815; J2250; J2270; J2543; J2704; J3010; J3370; J3490; J7030; J7060

== ENCOUNTER → 2018-01-21 | Outpatient (CLI) | payer MEDICARE | LOC: WI 10:06 | PROVIDERS: ATTEND Internal Medicine Hematology & Oncology | DX: Z79.811 Long term (current) use of aromatase inhibitors (principal) ==

== ENCOUNTER → 2018-05-16 | Outpatient (CLI) | payer MEDICARE ==
--- NOTE | 2018-05-16 09:41 | WOMENS IMAGING REPORT ---
EXAM DESCRIPTION: BONE DENSITY HIP/SPINE COMPLETED DATE/TIME: 05/16/2018 9:22 am REASON FOR STUDY: BONE DENSITY TEST/M81.0 Z12.31 ENCNTR SCREEN MAMMOGRAM FOR MALIGNANT NEOPLASM OF ANDREA M81.0 AGE-RELATED OSTEOPOROSIS W/O CURRENT PATHOLOGICAL FRAC COMPARISON: None. TECHNIQUE: Dual-Energy X-ray Absorptiometry (DEXA) of the AP Left forearm. LIMITATIONS: None. FINDINGS: LUMBAR SPINE AND HIP: The bone mineral density (BMD) of the lumbar spine and hip were not obtained. The patient was unable to lie flat on the table due to weight. LEFT FOREARM: The bone mineral density (BMD) measured in the left forearm correlates with a T-score of -1.2, which is osteopenia as defined by the World Health Organization. IMPRESSION: 1. LEFT FOREARM: OSTEOPENIA. 2. Please see above report. COMMENT: The World Health Organization defines low BMD as follows: T-score: Normal: Greater than -1.0 Osteopenia: Between -1.0 and -2.5 Osteoporosis: Less than -2.5 without fractures Established osteoporosis: Less than -2.5 with fractures In general, you may wish to consider: Diagnosis Treatment Follow-up DEXA Normal BMD Prevention 2-3 years Osteopenia Prevention/Therapy 1-2 years Osteoporosis Therapy Yearly TECHNICAL DOCUMENTATION: JOB ID: [id number]- All Rights Reserved Reading location - IP/workstation name: [email or web address]
--- NOTE | 2018-05-16 15:46 | WOMENS IMAGING REPORT ---
EXAM DESCRIPTION: 3D SCREENING MAMMO LEFT COMPLETED DATE/TIME: 05/16/2018 9:22 am REASON FOR STUDY: LT SCREENING Z12.31 Z12.31 ENCNTR SCREEN MAMMOGRAM FOR MALIGNANT NEOPLASM OF ANDREA M81.0 AGE-RELATED OSTEOPOROSIS W/O CURRENT PATHOLOGICAL FRAC COMPARISON: 05/13/2017 TECHNIQUE: Standard craniocaudal and mediolateral oblique views of the left breast recorded using di gital acquisition and breast tomosynthesis. Patient is post right mastectomy in December 2017 LIMITATIONS: None. FINDINGS: BREAST: Left No masses, calcifications or architectural distortion. No areas of suspicion. Read with the assistance of CAD. .[facility] - R2 Cenova Version 1.3 .[facility] Imaging - R2 Cenova Version 1.3 .[facility] Imaging - R2 Cenova Version 2.4 .[facility] - R2 Cenova Version 2.4 .[facility] - R2 Director Of Ancillary Services Version 9.2 IMPRESSION: NORMAL MAMMOGRAM. BIRADS 1. BREAST DENSITY: b. There are scattered areas of fibroglandular density. BIRAD: 1 Negative RECOMMENDATION: RECOMMENDATION: ROUTINE SCREENING left breast May 2019. COMMENT: The patient has been notified of the results by letter per SA requirements. Additional no tification policies are in place for contacting patient with suspicious or incomplete findings. Quality ID #225: The [employer] recommends an annual screening mammogram for women aged 40 years or over. This facility utilizes a reminder system to ensure that all patients receive reminder letters, and/or direct phone calls for appointments. This includes reminders for routine scr eening mammograms, diagnostic mammograms, or other Breast Imaging Interventions when appropriate. Th is patient will be placed in the appropriate reminder system. The [employer] (ACR) has developed recommendations for screening MRI of the breast s in certain patient populations, to be used in conjunction with mammography. Breast MRI surveillance may be appropriate for women with more than 20% lifetime risk of developing breast cancer as determi [place] by genetic testing, significant family history of the disease, or history of mantle radiation for Hodgkins Disease. ACR Practice Guidelines 2008. DBT Technology DBT is a type of tomographic mammography. With conventional mammography, overlapping breast tissue ma y make lesions difficult to detect, even with good compression. DBT uses an x-ray tube that rotates a round the breast, taking images at different angles. These images are then combined to create thin sl ices of the breast that the radiologist can view as a 3D reconstruction. The [employer] unit can perform full-field digital mammograms (2D imaging); or DBT (3D imaging); or both, in a combination mode that quickly performs both the mammogram and the tomosynthesis scan while the breast is still compressed. PQRS 6045F: Fluoroscopic imaging is not utilized for breast tomosynthesis. TECHNICAL DOCUMENTATION: FINDING NUMBER: (1) ASSESSMENT: (1) JOB ID: [id number] [employer]- All Rights Reserved Reading location - IP/workstation name: [facility]-[email or web address]
== END ==
LOC: WI 10:08
PROVIDERS: ATTEND Physician Assistant Medical
DX: Z12.31 Encounter for screening mammogram for malignant neoplasm of breast (principal); M81.0 Age-related osteoporosis without current pathological fracture
CPT/HCPCS: 77080

== ENCOUNTER → 2019-05-09 | Outpatient (CLI) | payer MEDICARE ==
--- NOTE | 2019-05-09 14:13 | WOMENS IMAGING REPORT ---
EXAM DESCRIPTION: 3D DX MAMMO LEFT UNILAT COMPLETED DATE/TIME: 05/09/2019 1:15 pm REASON FOR STUDY: Z85.3 PERSONAL HISTORY OF MALIGNANT NEOPLASM OF BREAST Z85.3 PERSONAL HISTORY OF MALIGNANT NEOPLASM OF BREAST COMPARISON: Digital tomosynthesis diagnostic left breast mammogram dated 05/16/2018 and digital diag nostic bilateral mammogram dated 05/13/2017. EXAM PARAMETERS: Standard craniocaudal and mediolateral oblique images of the breast recorded using digital acquisition and breast tomosynthesis. Read with the assistance of CAD. .[facility] - [employer] Version 9.2 LIMITATIONS: None. FINDINGS: BREAST LATERALITY: LEFT MASSES: Stable small mass subareolar region of the breast. CALCIFICATIONS: No new or suspicious calcifications. ARCHITECTURAL DISTORTION: None. ASYMMETRY: None noted. OTHER: No other significant findings. IMPRESSION: 1. Stable mammographic examination. BREAST DENSITY: b. There are scattered areas of fibroglandular density. BIRAD: ASSESSMENT: 2 Benign findings. RECOMMENDATION: 1. Routine screening mammogram. COMMENT: The patient has been notified of the results by letter per MQSA requirements. Additional no tification policies are in place for contacting patient with suspicious or incomplete findings. Quality ID #[id number]: The [employer] recommends an annual screening mammogram for women aged 40 years or over. This facility utilizes a reminder system to ensure that all patients receive reminder letters, and/or direct phone calls for appointments. This includes reminders for routine scr eening mammograms, diagnostic mammograms, or other Breast Imaging Interventions when appropriate. Th is patient will be placed in the appropriate reminder system. TECHNICAL DOCUMENTATION: FINDING NUMBER: (1) ASSESSMENT: (1) JOB ID: [id number] [employer]- All Rights Reserved Reading location - IP/workstation name: [facility]
== END ==
LOC: WI 09:53
PROVIDERS: ATTEND Surgery
DX: Z85.3 Personal history of malignant neoplasm of breast (principal)
CPT/HCPCS: 77065; G0279

== ENCOUNTER → 2020-05-14 | Outpatient (CLI) | payer MEDICARE ==
--- NOTE | 2020-05-14 11:45 | WOMENS IMAGING REPORT ---
EXAM DESCRIPTION: 3D DX MAMMO LEFT UNILAT IMAGES COMPLETED DATE/TIME: 05/14/2020 10:49 am REASON FOR STUDY: Z85.3 PERSONAL HISTORY OF MALIGNANT NEOPLASM OF BREAST COMPARISON: Priors back to 2017 EXAM PARAMETERS: Standard craniocaudal and mediolateral oblique images of the breast recorded using digital acquisition and breast tomosynthesis. True lateral view exaggerated CC view. Read with the assistance of CAD. .[facility] - R2 Baker Operator Automatic Version 9.2 LIMITATIONS: None. FINDINGS: BREAST LATERALITY: left MASSES: No suspicious masses. CALCIFICATIONS: No new or suspicious calcifications. ARCHITECTURAL DISTORTION: None. ASYMMETRY: None noted. OTHER: No other significant findings. IMPRESSION: Stable mammographic pattern. BREAST DENSITY: b. There are scattered areas of fibroglandular density. BIRAD: ASSESSMENT: 2 Benign findings. RECOMMENDATION: RECOMMENDED FOLLOW UP: Annual mammographic follow-up. SPECIFIC INTERVENTION/IMAGING/CONSULTATION RECOMMENDED:No additional intervention/ imaging/consultati on needed at this time. COMMUNICATION:The imaging findings were not discussed with the patient. Her referring provider has be en notified of the findings. COMMENT: The patient has been notified of the results by letter per SA requirements. Additional no tification policies are in place for contacting patient with suspicious or incomplete findings. Quality ID #[id number]: The [employer] recommends an annual screening mammogram for women aged 40 years or over. This facility utilizes a reminder system to ensure that all patients receive reminder letters, and/or direct phone calls for appointments. This includes reminders for routine scr eening mammograms, diagnostic mammograms, or other Breast Imaging Interventions when appropriate. Th is patient will be placed in the appropriate reminder system. TECHNICAL DOCUMENTATION: FINDING NUMBER: (1) ASSESSMENT: (1) JOB ID: [id number] 2010 [employer]- All Rights Reserved Reading location - IP/workstation name: [email or web address]
== END ==
LOC: WI 10:15
PROVIDERS: ATTEND Surgery
DX: Z85.3 Personal history of malignant neoplasm of breast (principal)
CPT/HCPCS: 77065; G0279